=== PATIENT | male | born 1940 | race Caucasian/White ===

== ENCOUNTER 2020-04-18 09:33 | Outpatient (CLI) | payer MEDICARE, OTHER, SELFPAY ==
[2020-04-18 10:35] LABS: Blood Urea Nitrogen 22 mg/dL (8-23)
--- NOTE | 2020-04-18 10:35 | CT_ITS ---
WS: [id number] CONTRAST-ENHANCED CT OF THE LEFT FEMUR TECHNIQUE: Contrast-enhanced CT of the left femur with coronal and sagittal reformatted images. CLINICAL INFORMATION: R23.3 - Spontaneous ecchymoses COMPARISON: None. DLP: 1630.[address] scans at [facility] use at least one of these dose optimization techniques: automat ed exposure control; mA and/or kV adjustment per patient size (includes targeted exams where dose is matched to clinical indication); or iterative reconstruction. FINDINGS: Mild diffuse soft tissue edema. Intramuscular and soft tissue edema extending from the ischial tubero sity to the distal femur with intramuscular and deep soft tissue edema. Edema at the origin of the se mimembranosus and conjoined tendon at the ischial tuberosity. Edema and a small amount of hematoma ex tends into the semitendinosus and semimembranosus tendons and muscle bellies. Interfascial edema with in the mid and distal thigh. Findings are consistent with proximal hamstring tear. Hypertrophic bony spurring at the initial tuberosity. No proximal avulsion fractures. Small avulsion fracture at the distal posterior lateral femoral condyle is age indeterminant. This could be due to d istal biceps femoris, LCL, or popliteus avulsion fracture. Vascular calcification. Tiny fat-containing left inguinal hernia. Sigmoid diverticulosis. CT/CT femur LT w con [id number] IMPRESSION: 1. Diffuse intramuscular edema with a small amount of mixed signal Hematoma in volving the proximal thigh posterior compartment most compatible with proximal hamstring tear 2. Soft tissue edema and hematoma at the origin of the facial tuberosity. Intr amuscular edema and interfascial edema extends into the mid and distal thigh. 3. Bony irregularity at the ischial tuberosity appears degenerative with hyper trophic spurring. No proximal avulsion fractures. 4. Small avulsion fracture at the distal lateral femoral condyle is age indete rminant but may be chronic. This could be due to distal biceps femoris, LCL, or popliteus avulsion. 5. No other significant findings.
[2020-04-18] MEDS: iohexol 300 mg/mL 100 mL Btl IV (11:24)
[2020-04-18 13:25] LABS: Testosterone Total 729.2 ng/dL (193-740)
== END 2020-04-18 09:34 | disposition home or self-care (01) ==
LOC: RADWPI 09:43
PROVIDERS: PCP Internal Medicine; Visit Provider Internal Medicine
DX: Z01.812 Encounter for preprocedural laboratory examination (principal); E34.9 Endocrine disorder, unspecified; R23.3 Spontaneous ecchymoses; R60.0 Localized edema
CPT/HCPCS: 36415; 73701; 82565; 84403; 84520; Q9967

== ENCOUNTER → 2020-08-07 10:55 | Outpatient (BNVA) | payer MEDICARE, OTHER, SELFPAY | PROVIDERS: PCP Internal Medicine; Visit Provider Internal Medicine | DX: R53.83 Other fatigue (principal); I25.10 Atherosclerotic heart disease of native coronary artery without angina pectoris; Z85.820 Personal history of malignant melanoma of skin; I10 Essential (primary) hypertension; E78.5 Hyperlipidemia, unspecified | CPT/HCPCS: 80053; 80061; 82607; 82746; 84443; 85025; 85651 ==

== ENCOUNTER → 2020-09-04 13:02 | Outpatient (BNVA) | payer MEDICARE, OTHER, SELFPAY | PROVIDERS: PCP Internal Medicine; Visit Provider Dermatology | DX: B36.0 Pityriasis versicolor (principal); L82.1 Other seborrheic keratosis; L81.4 Other melanin hyperpigmentation; Z85.820 Personal history of malignant melanoma of skin; Z87.891 Personal history of nicotine dependence | CPT/HCPCS: 87220 ==

== ENCOUNTER 2020-09-05 07:07 | Outpatient (CLI) | payer MEDICARE, OTHER, SELFPAY ==
--- NOTE | 2020-09-05 07:15 | USCV_ITS ---
Rafa Rodriguez Age: 80 Gender: M : 1940 Exam Date: 09/05/2020 07:41 Ordering Phys: Stuart Horton M.D ([email or web address]) Technologist: Exam [place] [facility] [place] Indication: SOB BP: 125 / 74 HR: 78 Rhythm: Sinus Technical Quality: Adequate MEASUREMENTS (Male / Female) Normal Values 2D ECHO LV Diastolic Diameter PLAX 3.9 cm 4.2 - 5.9 / 3.9 - 5.3 cm LV Systolic Diameter PLAX 2.3 cm IVS Diastolic Thickness 1.1 cm 0.6 - 1.0 / 0.6 - 0.9 cm IVS Systolic Thickness 1.5 cm LVPW Diastolic Thickness 1.0 cm 0.6 - 1.0 / 0.6 - 0.9 cm LVPW Systolic Thickness 1.3 cm LVOT Diameter 2.1 cm LV Ejection Fraction 2D Teich 73.8 % LV Ejection Fraction MOD 2C 60.6 % LV Ejection Fraction 2C AL 59.0 % LA Diameter 3.1 cm LA Width 3.5 cm LA Height 4.3 cm RA Width 3.4 cm RA Height 4.7 cm Aorta at Sinotubular Diameter 2.8 cm M-MODE LV Diastolic Diameter MM 5.2 cm 4.2 - 5.9 / 3.9 - 5.3 cm LV Systolic Diameter MM 3.4 cm LV Ejection Fraction MM Teich 62.9 % IVS Diastolic Thickness MM 0.9 cm 0.6 - 1.0 / 0.6 - 0.9 cm IVS Systolic Thickness MM 1.3 cm LVPW Diastolic Thickness MM 1.0 cm 0.6 - 1.0 / 0.6 - 0.9 cm LVPW Systolic Thickness MM 1.5 cm RV Diastolic Diameter MM 2.1 cm Aortic Annulus Diameter 3.3 cm LA Ao Ratio MM 1.1 MV E Point Septal Separation 0.7 cm DOPPLER AV Peak Velocity 120.0 cm/s LVOT Peak Velocity 110.3 cm/s AV Area Cont Eq vti 3.2 cm squared AV Area Cont Eq pk 3.1 cm squared MV Area PHT 4.9 cm squared Mitral E to A Ratio 0.8 MV E' Velocity 33.0 cm/s Mitral E to MV E' Ratio 6.3 Mitral E to LV E' Lateral Ratio 5.9 Mitral E to LV E' Septal Ratio 6.8 TR Peak Velocity 144.8 cm/s TR Peak Gradient 8.4 mmHg TV Peak E Velocity 84.0 cm/s Right Atrial Pressure 3.0 mmHg Pulmonary Artery Systolic Pressu 11.4 mmHg FINDINGS Left Ventricle Normal left ventricular size. LV systolic function is normal with EF of 55-60%. No regional wall motion abnormalities. Grade 1 diastolic dysfunction Right Ventricle The right ventricle is normal in size and function. Right Atrium The right atrium is normal in size. Left Atrium The left atrium is normal in size. Mitral Valve Structurally normal mitral valve without significant stenosis or prolapse. There is no mitral regurgitation. Aortic Valve Structurally normal aortic valve without significant sclerosis or stenosis. There is no aortic regurgitation. Tricuspid Valve Structurally normal tricuspid valve without significant stenosis or regurgitation. Insufficient TR jet to calculate RVSP Pulmonic Valve Structurally normal pulmonic valve without significant stenosis. There is no pulmonic regurgitation. Pericardium Normal pericardium without effusion. Aorta Normal ascending aorta dimension. CONCLUSIONS LV systolic function is normal with EF of 55-60% Grade 1 diastolic dysfunction No signficant valvular heart disease Compared to prior echocardiogram from 11/02/2017, no significant changes are noted Stuart Horton MD (Electronically Signed) Final Date: 08 Sep 2020 16:32 S
[2020-09-05 07:40] VITALS: BMI 25.8
--- NOTE | 2020-09-05 08:30 | ECG_ITS ---
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 Interpretive Statements NAME OF STUDY: LEXISCAN SESTAMIBI STRESS TEST INDICATION: [Shortness of Breath; Palpitations; Fatigue] Procedure: At the baseline, the blood pressure was 156/79mmHg with a heart rate of 71 bpm. The electrocardiogram showed normal sinus rhythm, normal axis with normal ST and T's. The Lexiscan was infused over a period of 20 seconds. A total of 0.4 mg of Lexiscan was infused. The stress phase was continued for a total of 5 minutes. Heart rate was at the end of stress phase was 89 bpm and a blood pressure of 146/82 mmHg. The EKG at the peak infusion revealed since normal sinus rhythm with no significant ST-T wave changes. Sestamibi was injected 20 seconds after the Lexiscan infusion. Blood pressure at the end of recovery phase was 128/70 mmHg with a heart rate of 82 bpm. Conclusion: 1. Normal EKG response to Lexiscan infusion 2. No Lexiscan induced chest pain or cardiac arrhythmia. 3. Normal blood pressure and heart rate response. 4. Sestamibi/sestamibi perfusion scan pending; see separate report. Electronically Signed On 09-18-2020 17:04:49 CDT by Stuart Horton M.D. [id number]
--- NOTE | 2020-09-05 08:31 | NMCV_ITS ---
NM roxanne perf SPECT r/s* [id number] Rafa Rodriguez Age: 80 Gender: M : 1940 Exam Date: 09/05/2020 09:16 Ordering Phys: Stuart Horton M.D ([email or web address]) Technologist: SARAH Molina Exam Location: [facility] Indications: SHORTNESS OF BREATH STRESS TEST Please see separate stress test report in [facility] for full findings IMAGE PROTOCOL Rest/Stress 1 Lexiscan Day Radiopharmaceutical Dose (mCi) Administration Site Administered by Rest: Tc-99m 10.9 IV SARAH Hinkle Sestamibi Stress:Tc-99m 32.5 IV SARAH Molina Sestamiwilliam Rest: 05-Sep-2020 60 Discovery 630 Stress: 05-Sep-2020 30 Discovery 630 0.4mg Lexiscan. Images obtained in supine and prone position. SPECT RESULTS Technical Quality: Excellent Raw Data Analysis: Normal Image Corrections: No attenuation or motion correction applied Summed Stress Score: 0 Summed Rest Score: 0 Summed Difference Score: 0 PERFUSION FINDINGS Homogenous radiotracer uptake throughout the myocardium. No evidence of ischemia noted FUNCTIONAL RESULTS (calculated via Gated SPECT) Stress Image LV EF (%): 61 Stress EDV (mL):93 TID: 0.98 Stress ESV (mL):36 FUNCTIONAL FINDINGS: There is normal left ventricular systolic function. IMPRESSIONS 1. Normal myocardial perfusion imaging with no evidence of ischemia 2. LV systolic function is normal Stuart Horton MD (Electronically Signed) Final Date: 06 Sep 2020 10:47 S
--- NOTE | 2020-09-05 10:24 | SUR.PREOP ---
Patient reports no pain or discomfort prior to the start of the procedure.
[2020-09-05] MEDS: regadenoson 0.4 Mg/5 ml Syringe IVP (10:25)
[2020-09-05 10:59] VITALS: BP 155/68; PULSE 82
== END 2020-09-05 07:08 | disposition home or self-care (01) ==
LOC: CDL 07:15
PROVIDERS: PCP Internal Medicine; Visit Provider Internal Medicine
DX: R53.83 Other fatigue (principal); R06.02 Shortness of breath; R00.2 Palpitations; I51.81 Takotsubo syndrome
CPT/HCPCS: 78452; 93017; 93306; A9500; J2785

== ENCOUNTER 2020-09-19 14:26 | Outpatient (CLI) | payer MEDICARE, OTHER, SELFPAY ==
--- NOTE | 2020-09-19 18:45 | ONC CON_ITS ---
Dr. Jiménez New Patient Note Patient: Rafa Rodriguez Unit #: [id number]: 1940 Dicatated By: Gary Jiménez M.D.Date of Visit: Sep 19, 2020 Onc MED New Patient/Consult Referring Physician: Jenn Knight Chief Complaint: Melanoma. History of Present Illness: This is an 80-year-old man with history of malignant melanoma involving the upper back, stage IB (pT2a, pN0, M0). He had initially presented with a 6-month history of an enlarging mole on the upper back. Punch biopsy of the lesion on 08/27/2014 showed David level IV malignant melanoma with Breslow depth 1.45 mm. There was no evidence for vascular or perineural invasion and there was no associated ulceration. He then underwent wide excision of the melanoma with right and left axillary sentinel lymph node biopsy and with additional right axillary lymph node sampling. Pathology on the wide excision showed organizing dermal scar with no residual malignancy. Left axillary sentinel lymph node biopsy showed no involvement in one lymph node. The right axillary sentinel lymph node biopsy showed no involvement in 1 lymph node. The right axillary lymph node sampling showed no involvement in an additional 5 nonsentinel axillary lymph nodes. Pathologic staging was pT2a, pN0. He had medical oncology consultation with Dr. Sin Aguirre in October 2014. Expectant management was recommended, as there was no indication for adjuvant therapy. He then continued his further oncology care with Dr. Regan Ortega in [place]. His surveillance PET/CT on 05/04/2016 showed no evidence of recurrent or residual malignancy. During his subsequent follow-up there was no evidence of recurrence of the melanoma. He is seen now at the request of Dr. Jenn Knight, the main concern being the fact that he has had some vague discomfort in his upper back, mainly when he is lying flat. He says he just does not feel right in that area. He says that he also had fairly abrupt onset of pretty severe fatigue and he had a weight loss in the range of 12 pounds over a fairly short period of time. Since then he has had some improvement in his fatigue, though he still reports having some tiredness. His activity is still been normal. ECOG score is 0. His appetite is stayed the same, and at this point he is regaining his weight. He does not have fever or night sweats. He has not had sore throat or difficulty swallowing. He has no shortness of breath, cough, or chest pain. His cardiac evaluation last month included a negative stress test, and there were no significant abnormalities noted on echocardiogram. He has no GI/ complaints other than occasional constipation. He has no other joint or bone pain. He does not complain of headache or dizziness, and he has no focal neurologic symptoms. Past Medical History: His medical history consists of androgen deficiency, coronary artery disease, hyperlipidemia, and hypertension. He has a history of melanoma and a history of basal cell skin cancer. Past Surgical History: He underwent punch biopsy of upper back skin lesion in August 2014 and wide excision of upper back melanoma with bilateral axillary sentinel lymph node biopsy and with additional right axillary lymph node sampling in September 2014. His other surgical/procedural history includes bilateral cataract excisions, excision of basal cell skin cancer, right inguinal hernia repair, and coronary angioplasty/stent placement in 2011. Medications: Alph-E (400 Units) Capsule Oral daily, Ascorbic Acid (500 mg) Tablet Oral daily, Aspirin (325 mg) Tablet Oral daily, Cholecalciferol Tablet Oral daily, Clopidogrel Bisulfate (75 mg) Tablet Oral daily, Daily Multiple Vitamins/Iron Tablet Oral daily, Depo-Testosterone Intramuscular every other week, HYDROcodone-Acetaminophen (5-325 mg) Tablet Oral t.i.d. PRN, Metoprolol Succinate ER (25 mg) Tablet SR 24 HR Oral daily, Nitroglycerin Tablet, sublingual Sublingual PRN, [place] 3-6-9 Fatty Acids Capsule Oral daily, Rosuvastatin Calcium (10 mg) Tablet Oral daily Allergies: No Known Allergies. Social History: Mr. Rodriguez is . He is retired. He had smoked as a teenager, and he quit at least 60 years ago. He drinks a scotch every night and he also occasionally drinks a few beers. Family History: Father of heart attack. Mother with heart disease or possibly blood clot. A maternal uncle had throat cancer. Review Of Symptoms: Constitutional - He has some tiredness, but he still has normal activity. He recently had a fairly abrupt weight loss, which was in the range of 12 pounds. He has regained much of that. He does not have fever or night sweats. ECOG score is 0, Eyes - No change in vision, ENMT - He has hearing loss and tinnitus. No sinus congestion/drainage. No mouth sores. No sore throat or difficulty swallowing, Hematologic/Lymphatic - He has easy bruising and he also bleeds easily from cuts, Respiratory - No shortness of breath. No cough. No pleuritic pain or hemoptysis, Cardiovascular - No angina pain. No palpitations, Gastrointestinal - No nausea or vomiting. No heartburn or acid reflux. He occasionally has constipation. No blood in the stool or black stools, Genitourinary (M) - No dysuria or hematuria. No urinary frequency. No urgency or incontinence, Musculoskeletal - He recently has had some mild discomfort in the upper back, mainly when he is lying flat. He has some joint stiffness, but no other joint or bone pain, Integumentary - He also has been treated for tinea versicolor, Neurologic - No headache or dizziness. No numbness or tingling. No other focal neurologic symptoms, Psychiatric - No anxiety or depression. No insomnia. Vital Signs: Performed on Sep 19, 2020 15:06: 3, 0, 25.52, 1.94 sq.m, 69 in, 95 % (LOW), 89 /min, 18 /min, 159/54 mm(hg) (HIGH), 98.3 F (LOW), and 172.8 lbs (HIGH). Physical Examination: Constitutional - He appears to be in good general health, Eyes - Sclerae nonicteric. Conjunctivae clear, ENMT - No lesions noted in the oral cavity, Neck - No mass or thyromegaly, Hematologic/Lymphatic - No cervical, clavicular, or axillary adenopathy, Respiratory - Lungs are clear with good air movement bilaterally, Cardiovascular - Heart rhythm is regular. There is no murmur, gallop, or rub noted. There is no carotid bruit noted, Abdomen - Soft and non-tender. Liver and spleen are not enlarged. There is no abdominal mass or ascites noted and there is no inguinal adenopathy, Back/Spine - The area of discomfort in his back localizes to the mid thoracic spine below the scar of his melanoma excision. There is no bony tenderness in that area or elsewhere in the spine, Extremities - No edema. Pedal pulses are palpable bilaterally, Integumentary - There is a significant area of scarring in the upper mid back. There is no evidence for local recurrence of melanoma, Neurologic - No focal neurologic deficits noted. Lab/Imaging: His laboratory studies from 08/07/2020 included CBC showing hemoglobin 17.9 g with hematocrit 52.4%. The red cell indices were slightly macrocytic. The white blood cell count was 10,800 and the platelet count was 234,000. Comprehensive metabolic profile showed elevated BUN at 29 mg/dL with creatinine 1.0 mg/dL. Bilirubin and liver enzymes were normal. B12 and folate levels were normal. TSH was normal at 0.48 ???IU/mL. Problem List: 1. Malignant melanoma involving the upper back, stage IB (pT2a, pN0, M0). 2. Hypertension. 3. Hyperlipidemia. 4. Coronary artery disease. 5. Androgen deficiency. Problems Addressed with this Encounter and Plan: 1. Patient with malignant melanoma involving the upper back, stage IB (pT2a, pN0, M0). He underwent wide excision of the melanoma with bilateral axillary sentinel lymph node biopsy and with additional right axillary lymph node sampling in September 2014. He was then followed expectantly, as there was no indication for adjuvant therapy. During follow-up there has been no evidence of recurrence of the melanoma. He has recently complained of some vague discomfort in his mid to upper back, mainly when he is lying flat. That area is a little inferior to the site of his melanoma excision. There is no palpable abnormality in that area and there is no evidence for local recurrence of the melanoma. Overall, the symptoms are very nonspecific and they do not warrant further investigation unless they are persistent or worsening. 2. He was noted to have elevated hemoglobin/hematocrit levels on his laboratory studies with Dr. Archer in July. 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 He is scheduled to have his blood count repeated within the next month or so. I also will request an LDH level with those studies. He will have further evaluation if the polycythemia is persistent. Signed By: Gary Jiménez M.D. <<Signature on File>>
== END 2020-09-19 14:27 | disposition home or self-care (01) ==
LOC: ONCMED 14:29
PROVIDERS: PCP Internal Medicine; Visit Provider Internal Medicine Medical Oncology
DX: C49.6 Malignant neoplasm of connective and soft tissue of trunk, unspecified (principal); D75.1 Secondary polycythemia; I10 Essential (primary) hypertension; E78.5 Hyperlipidemia, unspecified; I25.10 Atherosclerotic heart disease of native coronary artery without angina pectoris; Z79.899 Other long term (current) drug therapy
CPT/HCPCS: 99204

== ENCOUNTER 2021-07-29 15:43 | Outpatient (CLI) | payer MEDICARE, OTHER, SELFPAY ==
--- NOTE | 2021-07-29 16:00 | MR_ITS ---
WS: [id number] MRI LUMBAR SPINE NONCONTRAST HISTORY: Back pain COMPARISON: None available. TECHNIQUE: Sagittal and axial multisequence imaging is submitted. Advanced degenerative disc disease and osteophytosis in the cervical spine. Mild encroachment upon th e ventral cervical cord from C4 through C6. LEFT curvature lumbar spine. Retrolisthesis L2 by 2.3 mm, retrolisthesis L3 by 5.6 mm, retrolisthesis of L4 by 3.6 mm, anterolisthesis L5 by 4.7 mm. Prashant moderate desiccated and narrowed throughout, most significant at L3-4 and L4-5. No acute fra cture. Conus terminates normally at L1-2 disc level. Facet joint arthritis and ligamentum flavum hypertrophy noted on the sagittal lumbar spine at T10-11 and T11-12 with mild encroachment towards the thecal sac. L1-L2: Mild facet arthritis. No stenosis. L2-L3: Mild annular disc bulge. Diffuse osteophytic ridging. There may be small bilateral disc protru sions encroaching upon the lateral recesses and foramina. Mild central, subarticular recess and berhane inal stenosis. There is slightly greater contact and deformity of the traversing LEFT L3 nerve root. L3-L4: Retrolisthesis of L3. Severe facet joint arthritis and ligamentum flavum hypertrophy. Focal ce ntral disc protrusion. Combination of factors are causing severe central, bilateral subarticular rece ss and moderate to severe foraminal stenosis. There is near complete effacement of CSF surrounding th e cord. Significant encroachment upon the traversing nerve roots. L4-L5: Diffuse annular disc bulging and osteophytic ridging. Ligamentum flavum and facet arthritis. T here is an osteophyte with slight contact on the RIGHT lateral thecal sac. Moderate bilateral facet j oint arthritis. Moderate bilateral foraminal stenosis, RIGHT greater than LEFT with mild central and subarticular recess stenosis. The disc does abut the traversing L5 nerve roots. L5-S1: Diffuse annular disc bulging with marked ligamentum flavum and facet arthritis. Fluid in the f acet joints. Ligamentum flavum hypertrophy and disc contact the S1 nerve roots bilaterally. Moderate to severe central and bilateral foraminal stenosis and subarticular recess stenosis. There is a small amount of increased T2 signal consistent with edema in the paravertebral soft tissue s and muscles throughout the lumbar spine on the LEFT beginning at L2-L4 and more focally on the RIGH T at L3-4. LEFT renal cyst measures 3.0 x 3.1 cm. MR/MR lumbar spine wo con* [id number] IMPRESSION: 1. Multilevel advanced degenerative disc disease and facet arthritis throughou t the lumbar spine. 2. Severe central, bilateral subarticular recess with moderate to severe berhane inal stenosis at L3-4 due to disc bulging/protrusions and facet and ligamentum flavum hypertrophy. 3. Moderate bilateral foraminal stenosis at L4-5 RIGHT greater than LEFT. Mild central and subarticular recess stenosis at L4-5 with disc contacting the shahbaz ersing L5 nerve roots. 4. Moderate to severe central and bilateral foraminal and subarticular recess stenosis at L5-S1. 5. Mild central, subarticular recess and foraminal stenosis at L2-3. Slightly greater contact on the LEFT L3 nerve root.
== END 2021-07-29 15:44 | disposition home or self-care (01) ==
LOC: RAD 15:48
PROVIDERS: PCP Internal Medicine; Visit Provider Internal Medicine
DX: M54.50 Low back pain, unspecified (principal); M51.36 Other intervertebral disc degeneration, lumbar region; M48.061 Spinal stenosis, lumbar region without neurogenic claudication
CPT/HCPCS: 72148

== ENCOUNTER → 2021-08-05 12:59 | Outpatient (BNVA) | payer MEDICARE, OTHER, SELFPAY | PROVIDERS: PCP Internal Medicine; Visit Provider Physician Assistant | DX: M51.37 Other intervertebral disc degeneration, lumbosacral region (principal); M43.17 Spondylolisthesis, lumbosacral region; M47.816 Spondylosis without myelopathy or radiculopathy, lumbar region; N28.1 Cyst of kidney, acquired | CPT/HCPCS: 72110; 99204; 99999 ==

== ENCOUNTER → 2021-09-26 09:19 | Outpatient (BNVA) | payer MEDICARE, OTHER, SELFPAY | PROVIDERS: PCP Internal Medicine; Visit Provider Urology | DX: N28.1 Cyst of kidney, acquired (principal) | CPT/HCPCS: 81003; 99203 ==

== ENCOUNTER → 2021-12-19 12:43 | Outpatient (BNVA) | payer MEDICARE, OTHER, SELFPAY | PROVIDERS: PCP Internal Medicine; Visit Provider Podiatrist Foot & Ankle Surgery | DX: M72.2 Plantar fascial fibromatosis (principal); M79.672 Pain in left foot; M24.572 Contracture, left ankle | CPT/HCPCS: 20550; 73630; 99203 ==

== ENCOUNTER → 2022-01-26 09:51 | Outpatient (BNVA) | payer MEDICARE, OTHER, SELFPAY | PROVIDERS: PCP Internal Medicine; Visit Provider Podiatrist Foot & Ankle Surgery | DX: M72.2 Plantar fascial fibromatosis (principal) | CPT/HCPCS: 99213 ==

== ENCOUNTER → 2022-07-23 09:15 | Outpatient (BNVA) | payer MEDICARE, OTHER, SELFPAY | PROVIDERS: PCP Internal Medicine; Visit Provider Nurse Practitioner Family | DX: I25.10 Atherosclerotic heart disease of native coronary artery without angina pectoris (principal); I10 Essential (primary) hypertension; Z87.891 Personal history of nicotine dependence; Z79.82 Long term (current) use of aspirin | CPT/HCPCS: 99214 ==

== ENCOUNTER 2022-09-17 09:41 | Outpatient (CLI) | payer MEDICARE, OTHER, SELFPAY ==
--- NOTE | 2022-09-17 10:00 | US_ITS ---
WS: [id number] ULTRASOUND RENAL TECHNIQUE: Ultrasound examination of both kidneys. CLINICAL INFORMATION: RENAL CYST COMPARISON: None. FINDINGS: RIGHT: Right kidney is normal in size and appearance. Echogenicity: Normal. Cortical thickness: 1.1 cm; Normal. Hydronephrosis: None. Perinephric fluid: None. Right kidney measures: 10.3 cm x 5.5 cm x 4.0 cm. LEFT: LEFT superolateral simple renal cyst measuring 2.4 x 3.6 x 3.2 cm Left kidney is normal in size and appearance. Echogenicity: Normal. Cortical thickness: 1.0 cm; Normal. Hydronephrosis: None. Perinephric fluid: None. Left kidney measures: 10.9 cm x 5.9 cm x 4.1 cm. Normal visualized aorta. Decompressed bladder. US/US renal BI* [id number] IMPRESSION: 1. No hydronephrosis in either kidney. 2. LEFT superolateral simple renal cyst measuring 2.4 x 3.6 x 3.2 cm 3. Bladder is decompressed.
== END 2022-09-17 09:42 | disposition home or self-care (01) ==
PROVIDERS: PCP Internal Medicine; Visit Provider Urology
DX: N28.1 Cyst of kidney, acquired (principal); Z87.891 Personal history of nicotine dependence
CPT/HCPCS: 76770; 81003; 99213

== ENCOUNTER → 2023-01-26 14:33 | Outpatient (BNVA) | payer MEDICARE, OTHER, SELFPAY | PROVIDERS: PCP Internal Medicine; Visit Provider Nurse Practitioner Family | DX: L81.4 Other melanin hyperpigmentation (principal); D22.5 Melanocytic nevi of trunk; L85.3 Xerosis cutis; L57.8 Other skin changes due to chronic exposure to nonionizing radiation; Z85.820 Personal history of malignant melanoma of skin | CPT/HCPCS: 17000; 99213 ==

== ENCOUNTER → 2023-01-28 14:32 | Outpatient (BNVA) | payer MEDICARE, OTHER, SELFPAY | PROVIDERS: PCP Internal Medicine; Visit Provider Internal Medicine | DX: I25.10 Atherosclerotic heart disease of native coronary artery without angina pectoris (principal); I10 Essential (primary) hypertension; E78.5 Hyperlipidemia, unspecified; R06.00 Dyspnea, unspecified; R53.83 Other fatigue; Z87.891 Personal history of nicotine dependence | CPT/HCPCS: 99214 ==

== ENCOUNTER 2023-02-17 08:51 | Outpatient (CLI) | payer MEDICARE, OTHER, SELFPAY ==
--- NOTE | 2023-02-17 09:30 | USCV_ITS ---
Jennifer Rafa Age: 82 Gender: M : 1940 Exam Date: 02/17/2023 09:05 Ordering Phys: Stuart Horton M.D ([email or web address]) Technologist: [place] [facility] [place]: sob BP: 150 / 62 HR: 64 Rhythm: Sinus Technical Quality: Adequate MEASUREMENTS (Male / Female) Normal Values 2D ECHO LV Chamber Size 4.3 cm RV Chamber Size 4.7 cm LVOT Diameter 2.3 cm LV Ejection Fraction MOD 2C 53.9 % LV Ejection Fraction 2C AL 55.1 % LA Diameter 3.5 cm LA Width 3.7 cm LA Height 4.8 cm RA Width 3.9 cm RA Height 4.4 cm Aorta at Sinotubular Diameter 2.8 cm IVC Diameter 1.7 cm M-MODE Aortic Annulus Diameter 3.2 cm LA Ao Ratio MM 1.2 MV E Point Septal Separation 0.7 cm DOPPLER AV Peak Velocity 121.0 cm/s LVOT Peak Velocity 91.0 cm/s AV Area Cont Eq vti 3.0 cm squared AV Area Cont Eq pk 3.0 cm squared MV Peak Velocity 92.0 cm/s MV E' Velocity 8.0 cm/s TR Peak Velocity 109.7 cm/s TR Peak Gradient 4.8 mmHg TV Peak E Velocity 66.0 cm/s Right Atrial Pressure 3.0 mmHg Pulmonary Artery Systolic Pressu 7.8 mmHg PV Peak Velocity 92.0 cm/s FINDINGS Left Ventricle Left ventricle is normal size. LV systolic function is normal with EF 55 to 60%. No regional wall motion normalities are seen. Grade 1 diastolic dysfunction Right Ventricle Normal in size and function Right Atrium normal in size Left Atrium normal in size Mitral Valve Structurally normal mitral valve. Trace mitral regurgitation. Aortic Valve Aortic valve is thickened. No significant stenosis or regurgitation. Tricuspid Valve Mild tricuspid regurgitation. Insufficient TR jet to calculate RVSP. Pulmonic Valve Not well-visualized Pericardium Normal Aorta Normal in size IVC Appears to be normal CONCLUSIONS LV systolic function is normal with EF of 55 to 60%. Grade 1 diastolic dysfunction. Trace mitral regurgitation. Trace tricuspid regurgitation Compared to prior echocardiogram from 2020, no significant changes are seen Stuart Horton MD (Electronically Signed) Final Date: 17 February 2023 10:08 S
== END 2023-02-17 08:52 | disposition home or self-care (01) ==
LOC: RAD 08:51
PROVIDERS: PCP Internal Medicine; Visit Provider Internal Medicine
DX: R06.02 Shortness of breath (principal); R07.9 Chest pain, unspecified
CPT/HCPCS: 93306

== ENCOUNTER 2023-02-17 10:01 | Outpatient (CLI) | payer MEDICARE, OTHER, SELFPAY ==
--- NOTE | 2023-02-17 | ECG_ITS ---
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 Interpretive Statements NAME OF STUDY: LEXISCAN SESTAMIBI STRESS TEST INDICATION: [Chest Pain; Shortness of Breath, ] Procedure: At the baseline, the blood pressure was 142/74mmHg with a heart rate of 59 bpm. The electrocardiogram showed normal sinus rhythm, normal axis with normal ST and T's. The Lexiscan was infused over a period of 20 seconds. A total of 0.4 mg of Lexiscan was infused. The stress phase was continued for a total of 5 minutes. Heart rate was at the end of stress phase was 77 bpm and a blood pressure of 154/73 mmHg. The EKG at the peak infusion revealed normal sinus rhythm with no significant ST-T wave changes. Sestamibi was injected 20 seconds after the Lexiscan infusion. Blood pressure at the end of recovery phase was 148/73 mmHg with a heart rate of 72bpm. Conclusion: 1. Normal EKG response to Lexiscan infusion 2. No Lexiscan induced chest pain or cardiac arrhythmia. 3. Normal blood pressure and heart rate response. 4. Sestamibi/sestamibi perfusion scan pending; see separate report. Electronically Signed On 02-18-2023 11:16:12 TRAFFIC INVESTIGATOR by Stuart Horton M.D. [id number]
[2023-02-17 10:05] VITALS: BMI 25.7
--- NOTE | 2023-02-17 10:09 | NMCV_ITS ---
NM roxanne perf SPECT r/s* [id number] Rafa Rodriguez Age: 82 Gender: M : 1940 Exam Date: 02/17/2023 10:09 Ordering Phys: Stuart Horton M.D ([email or web address]) Technologist: SARAH Molina Exam Location: [facility] Indications: CHEST PAIN, SHORTNESS OF BREATH STRESS TEST Please see separate stress test report in [facility] for full findings IMAGE PROTOCOL Rest/Stress 1 Lexiscan Day Radiopharmaceutical Dose (mCi) Administration Site Administered by Rest: Tc-99m 10.4 IV SARAH Hinkle Sestamibi Stress:Tc-99m 32.5 IV SARAH Hinkle Sestamibi Rest: 17-Feb-2023 60 Discovery 630 Stress: 17-Feb-2023 30 Discovery 630 0.4mg Lexiscan. Images obtained in supine and prone position. SPECT RESULTS Technical Quality: Excellent Raw Data Analysis: Normal Image Corrections: No attenuation or motion correction applied Summed Stress Score: 9 Summed Rest Score: 7 Summed Difference Score: 3 PERFUSION FINDINGS There is a medium to large in size reversible perfusion defect noted in apical and apical anterior wall. This is consistent with medium to large sized area of ischemia seen in LAD territory. FUNCTIONAL RESULTS (calculated via Gated SPECT) Stress Image LV EF (%): 76 Stress EDV (mL):71 TID: 0.98 Stress ESV (mL):17 FUNCTIONAL FINDINGS: There is normal left ventricular systolic function. IMPRESSIONS 1. Abnormal myocardial perfusion imaging with medium to large sized area of ischemia seen in LAD territory. 2. LV systolic function is normal. Stuart Horton MD (Electronically Signed) Final Date: 18 February 2023 09:46 S
[2023-02-17] MEDS: regadenoson 0.4 Mg/5 ml Syringe IVP (11:17)
[2023-02-17 11:42] VITALS: BP 148/73; PULSE 75
== END 2023-02-17 10:02 | disposition home or self-care (01) ==
LOC: CARD 10:02 → CDL 10:05
PROVIDERS: PCP Internal Medicine; Visit Provider Internal Medicine
DX: R07.9 Chest pain, unspecified (principal); R06.02 Shortness of breath
CPT/HCPCS: 36415; 78452; 93017; 93306; 96374; A9500; J2785

== ENCOUNTER 2023-03-03 08:45 | Outpatient (CLI) | payer MEDICARE, OTHER, SELFPAY ==
[2023-03-03] VITALS (51 sets, daily range): BP systolic 103–159; BP diastolic 59–88; PULSE 61–97; RESP 0–33; TEMP 36.7–36.9; O2SAT 92–99; BMI 27.1
--- NOTE | 2023-03-03 09:00 | XACV_ITS ---
Exam Room: 2 Ht: 170 cm Wt: 78 kg BSA: 1.94 m2 Gender: Male : 1940 Any Known Allergies: No known allergies Exam Priority: Routine Procedure(s): Procedure Description: Diagnostic procedure Procedure Description: PCI procedure Procedure Description: Drug Eluting Coronary Stent Procedure Description: PTCA Procedure Description: Miscellaneous Procedure Description: ACT Procedure Description: Coronary Angiography Diagnostic Cath Status: Urgent PCI Status: Elective Conclusions 1. Diagnostic coronary angiogram. 2. Left main: Normal vessel. 3. Left anterior descending artery: Proximal 80% stenosis, mid vessel severe ISR 99% stenosis, distal vessel with 50-60% diffuse disease. 4. Left circumflex artery: Previously placed stent in the mid vessel patent. There is 70% stenosis in the proximal segment. 5. Right coronary artery: Mild diffuse disease in the proximal and mid segment. 30% diffuse disease in the distal vessel. 6. Conclusion: Severe in-stent stenosis in mid LAD, 80% stenosis in the proximal LAD and 70% stenosis in the proximal LCx. 7. Recommendation: Angioplasty of mid-distal and proximal LAD. Will consider staged PCI of proximal circumflex. 8. Angioplasty of LAD. 9. A proximal and mid distal ISR severe stenosis lesion were crossed with the with a BMW wire. Both lesions were predilated with 2.0 and 2.5 compliant balloons. Multiple inflations were made up to 12-14 JOSE E. Subsequently a drug-eluting stent resolute 2.75 x 18 was deployed in the mid distal segment to cover the ISR. The stent was postdilated with 3.0 NC balloon at 14 JOSE E. A second drug-eluting stent resolute 3.0x26 was deployed in the proximal mid segment at 14 JOSE E. The stent was postdilated with 3.25 NC balloon at 16 JOSE E. Post stent excellent angiographic result, JOSE-3 flow. No complication related to the procedure. Interventional RX Recommendation: PCI w/o planned CABG Diagnostic RX Recommendation: PCI w/o planned CABG Anticoagulation: Heparin Pressures Phase:Rest AO : 122 / 71 ( 93 ) @ 10:35:00 AM 105 / 72 ( 89 ) @ 10:36:00 AM 127 / 94 ( 111 ) @ 10:40:00 AM 127 / 80 ( 103 ) @ 10:40:00 AM 123 / 91 ( 108 ) @ 10:45:00 AM 134 / 79 ( 104 ) @ 10:49:00 AM 144 / 82 ( 110 ) @ 11:00:00 AM 147 / 94 ( 119 ) @ 11:06:00 AM Clinical Evaluation EBL: 5mL-10mL Procedural Details Procedure Consent Obtained. Pre-Procedure Time Out. Identified patient by full name and date of as verbalized by the patient/guarantor. Does the consent match the physician's order: Yes. Accurate & Complete Informed Consent: Yes. Inpatient/Outpatient History & Physical on Chart: Yes. If H&P is completed, is and addenduem needed: No; If yes, is the addendum complete: N/A. Visualize and Verify Site with Patient/Guarantor: N/A. Relevant Radiology Images available: Yes. Pre-op teaching completed and patient verbalized understanding. The risks, benefits, and alternatives of sedation and/or procedure were discussed by physician. The patient agrees to continue. Procedure started. Current Diagnosis : Chest Pain. [facility] Clinical Fraility Score: 3: Managing Well. Store Team Leader Indications: Worsening Angina. Chest Pain Symptom Assessment: Atypical Angina. Correct patient, site and procedure confirmed by cath team. Current diagnosis: Chest Pain. PERRLA. 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 Lungs clear x 5 lobes. IV Site on Arrival: 20 gauge in the left anticubital. IV Fluids: 0.9% NaCl at KVO. 0 mL infused prior to lab manager. Pre Procedural Pulses: bilateral dorsalis pedis was 3+. Pre Procedural Pulses: bilateral posterior tibial was 3+. Pre Procedural Pulses: bilateral radial was 3+. Oxygen started at 2liters/min via nasal canula. right groin was prepped with chloroprep then draped in the usual sterile fashion. right radial was prepped with chloroprep then draped in the usual sterile fashion. Baseline sample Acquired. HR: 79 BPM. Physician arrived. Physician scrubbed in. Immediate Pre-Procedure Time Out. Correct Patient: Yes; Correct Procedure: Yes; Correct Site: Yes; Correct Patient Position: Yes; Correct Supplies: Yes; Dried Flammable Prep: Yes; Blood Products Available: N/A;. Lidocaine 1% infiltrated to the right radial. Arterial access obtained. A 6 sao tomean JL3.5 catheter in over wire. Multiple views taken of left coronary artery. Catheter removed over the exchange wire. A 6 sao tomean JR4 catheter in over wire. Multiple views taken of right coronary artery. Physician review of cine films. Catheter removed over the exchange wire. 6 sao tomean XB 3.5 guide catheter was inserted over the wire. BMW guidewire was advanced through the guide catheter to lesion in the mid LAD. Inflation number : 1 A AB MINI TREK 2.00X12 RX BALLOON was prepped and advanced across the Dist LAD , then inflated to 10 JOSE E for 0:14 seconds. Inflation number: 1 The AB MINI TREK 2.00X12 RX BALLOON was reinflated across the Mid LAD, to 12 JOSE E for 0:07 seconds. Inflation number: 2 The AB MINI TREK 2.00X12 RX BALLOON was reinflated across the Mid LAD, to 14 JOSE E for 0:07 seconds. Inflation number: 1 The AB MINI TREK 2.00X12 RX BALLOON was reinflated across the Prox LAD, to 14 JOSE E for 0:09 seconds. Inflation number: 2 The AB MINI TREK 2.00X12 RX BALLOON was reinflated across the Prox LAD, to 16 JOSE E for 0:09 seconds. Balloon out. Results checked. Inflation number : 3 A AB TREK 2.50X15 RX BALLOON was prepped and advanced across the Mid LAD , then inflated to 8 JOSE E for 0:11 seconds. Inflation number: 4 The AB TREK 2.50X15 RX BALLOON was reinflated across the Mid LAD, to 10 JOSE E for 0:09 seconds. Inflation number: 5 The AB TREK 2.50X15 RX BALLOON was reinflated across the Mid LAD, to 12 JOSE E for 0:07 seconds. Inflation number: 3 The AB TREK 2.50X15 RX BALLOON was reinflated across the Prox LAD, to 12 JOSE E for 0:16 seconds. Balloon out. 2.95x07gm Stent inserted to lesion in the mid LAD. Inflation Number : 6 A MDT R JAYCEE 2.75X18 RAMA -Lot Number# _[id number] EXP: 09/05/2025 was prepped and advanced across the Mid LAD. The stent was deployed at 12 JOSE E for 0:16 seconds. Stent balloon out over wire. Inflation Number : 4 A MDT R JAYCEE 3.0X26 RAMA -Lot Number# _[id number]_ EXP: 05/01/2023 was prepped and advanced across the Prox LAD. The stent was deployed at 17 JOSE E for 0:20 seconds. Stent balloon out over the wire. Inflation number : 2 A MDT NC EUPHORA RX [id number] BALLOON was prepped and advanced across the Dist LAD , then inflated to 8 JOSE E for 0:22 seconds. Inflation number: 7 The MDT NC EUPHORA RX [id number] BALLOON was reinflated across the Mid LAD, to 14 JOSE E for 0:10 seconds. Inflation number: 8 The MDT NC EUPHORA RX [id number] BALLOON was reinflated across the Mid LAD, to 16 JOSE E for 0:10 seconds. Inflation number: 5 The MDT NC EUPHORA RX 3.73Y57YJ BALLOON was reinflated across the Prox LAD, to 18 JOSE E for 0:14 seconds. Balloon out. Results checked. Results checked. Wire out. Guide catheter out. ACT drawn. Results 374 seconds. Therapeutic limits - pre-heparin administration 90-150 seconds and monitoring heparin during a vascular procedure >250 seconds. A TR Band was successful obtaining hemostatsis at the Right Radial artery insertion site. Post Procedure: Pulses reassessed and unchanged. PERRLA. 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 No VTE prophylaxis required. Medication's Wasted: Other = Fentanyl 50mcg. Medication's Wasted: Nitro = 49.4 mg. Medication's Wasted: Lidocaine 1% = 1 mL. Medication's Wasted: Heparin = 4000 units. Total IV fluids: 86 mL. Post-op diagnosis: CAD. Complications: None. Estimated blood loss: 5mL-10mL. Responsiveness - Normal response to verbal stimuli; alert and oriented, PERRLA. Airway - Unaffected, no intervention required; spontaneous ventilation. Circulation: W/N/L, pulses unchanged. Nausea/Vomiting: No. Vital chart was stopped. Procedure completed. Patient transferred by wheelchair to CPRU. Access Site Site: Right Radial artery Sheath Size: 6 Fr Hemostasis Method: TR Band Hemostasis Success: Successful Procedure Medications Start: 10:16 AM Stop: 10:16 AM Medication: Plavix Amount: 300 mg Route: P.O. Start: 10:26 AM Stop: 10:26 AM Medication: Versed Amount: 1 mg Route: I.V. Start: 10:26 AM Stop: 10:26 AM Medication: Fentanyl Amount: 50 mcg Route: I.V. Start: 10:32 AM Stop: 10:32 AM Medication: Nitrogylcerin Amount: 200 mcg Route: I.A. Start: 10:32 AM Stop: 10:32 AM Medication: Heparin Amount: 5000 units Route: I.V. Start: 10:48 AM Stop: 10:48 AM Medication: Heparin Amount: 5000 units Route: I.V. Start: 11:03 AM Stop: 11:03 AM Medication: Nitrogylcerin Amount: 200 mcg Route: I.C. Start: 11:06 AM Stop: 11:06 AM Medication: Versed Amount: 1 mg Route: I.V. Start: 11:23 AM Stop: 11:23 AM Medication: Nitrogylcerin Amount: 200 mcg Route: I.C. I, the attending physician, have reviewed and verified all procedure medications. Yes, all medications given per verbal order History/Risk Factors Hypertension: Yes Dyslipidemia: Yes Peripheral Arterial Disease (PAD): No Myocardial Infarction (ME): No Obesity: No Renal Disease: No Tobacco Use: Never Prior Interventions PCI: Yes CABG: No Valve Surgery: No Date of PCI: 11/12/2011 Report Signatures Finalized by Panchito Ching MD on 03/03/2023 12:35 PM
[2023-03-03 09:32] LABS: Basophils % 0.7 %; Eosinophils # 0.1 10^3/uL (0.0-0.8); Eosinophils % 1.3 %; Lymphocytes # 1.6 10^3/uL (0.8-4.8); Lymphocytes % 29.9 %; Mean Corpuscular HGB Conc 33.4 g/dL (30-55); Mean Corpuscular Hemoglobin 33.3 pg (27-33); Mean Corpuscular Volume 99.6 fl (82-101); Mean Platelet Volume 9.2 fL (7.4-10.4); Monocytes # 0.6 10^3/uL (0.2-0.9); Monocytes % 10.9 %; Neutrophils # 3.07 10^3/uL (1.8-7.7); Nucleated Red Blood Cells % 0 %; Platelet Count 187 10^3/cmm (157-399); Red Blood Count 4.72 10^6/uL (3.85-5.65); Red Cell Distribution Width 12.2 % (12.1-15.1); White Blood Count 5.39 10^3/uL (3.29-11.43)
[2023-03-03] MEDS: diphenhydrAMINE 50 mg Capsule PO (09:36)
[2023-03-03 09:59] LABS: Anion Gap 14.3 (5-19); Blood Urea Nitrogen 21 mg/dL (8-23); Calcium 10.3 mg/dL (8.5-10.5); Carbon Dioxide 28 mmol/L (22-29); Chloride 100 mmol/L (98-107); Glucose 95 mg/dL (65-115); Osmolality Calculated 289 mOsm/kg (285-295); Potassium 4.3 mmol/L (3.5-5.1); Sodium 138 mmol/L (136-145)
[2023-03-03] MEDS: nitroglycerin drip 50 MG/250 ML PREMIX IV (12:29)
--- NOTE | 2023-03-03 12:37 | PM.HP ---
Providers/Chief Complaint Admitting Physician: Panchito Ching MD Primary Care Provider: Morris Archer MD Chief Complaint: R94.39 History of Present Illness Rafa Rodriguez is a 82 year old male <del>with</del> <del>a</del> <del>known</del> <del>history</del> <del>of</del> <del>coronary</del> <del>disease</del> <del>recently</del> <del>had</del> <del>a</del> <del>nuclear</del> <del>stress</del> <del>test</del> <del>for</del> <del>symptoms</del> <del>of</del> <del>angina.</del> <del>The</del> <del>stress</del> <del>test</del> <del>was</del> <del>strongly</del> <del>positive</del> <del>for</del> <del>ischemia</del> <del>in</del> <del>the</del> <del>anterolateral</del> <del>territory.</del> <del>Patient</del> <del>underwent</del> <del>cardiac</del> <del>cath</del> <del>today.</del> <del>Angiography</del> <del>revealed</del> <del>severe</del> <del>in-stent</del> <del>restenosis</del> <del>in</del> <del>the</del> <del>mid</del> <del>LAD.</del> <del>There</del> <del>was</del> <del>also</del> <del>significant</del> <del>disease</del> <del>in</del> <del>the</del> <del>proximal</del> <del>LAD</del> <del>as</del> <del>well</del> <del>as</del> <del>in</del> <del>the</del> <del>proximal</del> <del>circumflex</del> <del>artery.</del> <del>Considering</del> <del>the</del> <del>anatomy</del> <del>will</del> <del>plan</del> <del>for</del> <del>angioplasty</del> <del>of</del> <del>mid</del> <del>distal</del> <del>LAD</del> <del>and</del> <del>proximal</del> <del>LAD</del> <del>stenosis.</del> <del>And</del> <del>plan</del> <del>for</del> <del>possible</del> <del>staged</del> <del>angioplasty</del> <del>of</del> <del>the</del> <del>circumflex</del> <del>artery</del> <del>if</del> <del>needed.</del> <del>Patient</del> <del>underwent</del> <del>successful</del> <del>angioplasty</del> <del>of</del> <del>a</del> <del>mid</del> <del>distal</del> <del>LAD</del> <del>and</del> <del>proximal</del> <del>LAD</del> <del>with</del> <del>a</del> <del>drug-eluting</del> <del>stents.</del> <del>Postprocedure</del> <del>clinically</del> <del>patient</del> <del>is</del> <del>asymptomatic.</del> <del>No</del> <del>complication</del> <del>noted</del> <del>to</del> <del>the</del> <del>procedure.</del> <del>Patient</del> <del>is</del> <del>being</del> <del>admitted</del> <del>for</del> <del>observation</del> <del>overnight.</del> Review of Systems Narrative: Detailed 10 point systemic review remarkable for ongoing symptoms of angina with mild to moderate exertion for last week or so. Associated with shortness of air. Rest of systemic review unremarkable. He is fairly active in his routine life. Medications/Allergies Home Medications Medication Instructions Recorded Confirmed Last Taken Type ascorbate calcium (vitamin C) 500 500 mg PO DAILY 06/01/19 03/03/23 03/02/23 08:00 History mg tablet aspirin 325 mg tablet 325 mg PO DAILY 06/01/19 03/03/23 03/03/23 07:00 History cholecalciferol (vitamin D3) 1 tab PO DAILY 06/01/19 03/03/23 03/02/23 08:00 History multivitamin,[id number] 1 tab PO DAILY 06/01/19 03/03/23 03/02/23 08:00 History (Complete Multivitamin tablet) omega-3 fatty acids 1,000 mg 1,000 mg PO DAILY 06/01/19 03/03/23 03/02/23 08:00 History capsule (Fish Oil Concentrate) vitamin E (dl, acetate) 180 mg 400 unit PO DAILY 06/01/19 01/28/23 Unknown History (400 unit) capsule testosterone cypionate 200 mg/mL 100 mg (0.5 mL) SUBCUT .Q 2 Weeks 02/16/22 01/28/23 Unknown Rx intramuscular oil #10 mL (Depo-Testosterone) clopidogrel 75 mg tablet 75 mg PO DAILY #90 tabs 12/04/22 03/03/23 03/03/23 07:00 Rx rosuvastatin 10 mg tablet 10 mg PO DAILY #90 tabs 12/04/22 03/03/23 03/03/23 07:00 Rx metoprolol succinate 50 mg See Rx Instructions .Route 01/29/23 03/03/23 03/03/23 07:00 Rx tablet,extended release 24 hr .COMPLEX #45 tabs Allergies Allergy/AdvReac Type Severity Reaction Status Date / Time No Known Allergies Allergy Verified 01/28/23 14:54 PFSH Acute PFSH: Medical History ASHD (arteriosclerotic heart disease) Dizziness Dyslipidemia History of malignant melanoma History of nonmelanoma skin cancer HTN (hypertension) Hx of heart valve stenosis Surgical History History of tonsillectomy S/P angioplasty with stent S/P cataract extraction S/P hernia repair S/P tonsillectomy Family History Father , AGE 68 Myocardial infarction Mother , AT AGE 62 No problems noted. 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 HENMT: OTHER: Unremarkable normal. Eye: OTHER: Normal Chest: OTHER: Chest exam is unremarkable. Resp: OTHER: Good air entry bilaterally. No added sounds. Cardio: OTHER: Normal cardiovascular exam. Normal first and second heart sound. No added sounds. GI: OTHER: Abdomen soft and nontender. BS + Extremity: OTHER: Normal.No pedal edema. Neuro: OTHER: Grossly intact. Patient moves all 4 limbs. Skin: OTHER: Warm and dry. Data 03/03/23 09:22 03/03/23 09:22 A&P Assessment and plan (1) Unstable angina: This 82-year-old patient with a known history of coronary disease with previous multiple angioplasties and successful angioplasty procedure of LAD with 2 drug-eluting stents for severe a stenosis. Postprocedure patient is clinically fine and asymptomatic. No complication related to the procedure. Patient is being admitted in ICU for observation overnight. He was loaded with dual antiplatelets and will continue his routine medication upon discharge. Attestations Medical Necessity Statement*: Post angioplasty of LAD Coding Level of Care Code Critical Care >/= 30 minutes Diagnoses Unstable angina I20.0
[2023-03-03] MEDS: omega-3 fatty acids 1,000 mg Capsule 1000 MG PO (15:19)
[2023-03-03] MEDS: metoprolol succinate ER (24 HR) 50 mg Tablet 25 MG PO (15:19)
--- NOTE | 2023-03-03 19:10 | PC.NURSE ---
Dressing to right wrist has very small amount of blood. Bruising observed. Patient denies pain to site.
--- NOTE | 2023-03-03 19:42 | PC.NURSE ---
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 He had a TR band on his right wrist. NO hematomas, or bleeding noted. Removed TR band, applied Bioclusive dressing, very slow ooze noted from site. reapplied TR band at 6ml then slowly released it after dinner, applied a gauze and bioclusive dressing.. Area has since oozed a little onto gauze but not out dressing. Sinus rhythm noted o monitor entire ICU time. Pt has denies chest pain or dizziness. He has used urinal once this shift. He has a big appetite and ate all of lunch and dinner,.
[2023-03-03] MEDS: atorvastatin 40 mg Tablet PO (20:04)
[2023-03-04] VITALS (22 sets, daily range): BP systolic 117–155; BP diastolic 63–89; PULSE 60–82; RESP 0–18; O2SAT 95–100
[2023-03-04] MEDS: aspirin 325 mg Tablet PO (08:25)
[2023-03-04] MEDS: ascorbic acid 500 mg Tablet PO (08:25)
[2023-03-04] MEDS: metoprolol succinate ER (24 HR) 50 mg Tablet 25 MG PO (08:25)
[2023-03-04] MEDS: omega-3 fatty acids 1,000 mg Capsule 1000 MG PO (08:25)
[2023-03-04] MEDS: clopidogrel 75 mg Tablet PO (08:25)
--- NOTE | 2023-03-04 09:28 | P.DS_ITS ---
Discharge Providers Date of Admission: 03/03/23 11:51 Date of Discharge: March 04, 2023 Attending Provider at Admission: Panchito Ching MD Attending Provider at Discharge: Panchito Ching MD Primary Care Provider: Morris Archer MD Diagnoses at Discharge Discharge Diagnosis (1) Unstable angina: Status: Acute Reason for Visit Reason for Visit: R94.39 Hospital Course Hospital Course This an 82-year-old male patient with previous history of coronary disease who was admitted with symptoms of worsening angina and a strongly positive nuclear stress test. He underwent successful angioplasty of LAD with 2 drug-eluting stents. Postprocedure patient is doing fine. vitals are stable. cardiovascular exam is unremarkable. He is ambulating well. He is going to be discharged home today and follow-up in the cardiology clinic in 2 to 3 weeks. Physical Exam Narrative: Vitals normal, pulse 72 bpm, blood pressure 121/76 No JVD Chest clear to auscultation bilaterally Cardiovascular exam unremarkable. Normal first and second heart sounds. No added sounds. Abdominal soft nontender. Bowel sounds audible. Extremities: Normal distal pulses palpable bilaterally. No pedal edema. Right radial arteriotomy site is unremarkable. Skin warm and dry. Neuro: Normal and intact. 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 Routine Exams 03/03/23 09:00 Completed Laboratory Results WBC 5.39 10^3/uL (3.29-11.43) 03/03/23 09:22 RBC 4.72 10^6/uL (3.85-5.65) 03/03/23 09:22 Hgb 15.70 g/dL (11.27-16.99) 03/03/23 09:22 Hct 47.0 % (37-53) 03/03/23 09:22 MCV 99.6 fl (82-101) 03/03/23 09:22 MCH 33.3 pg (27-33) H 03/03/23 09:22 MCHC 33.4 g/dL (30-55) 03/03/23 09:22 RDW 12.2 % (12.1-15.1) 03/03/23 09:22 Plt Count 187 10^3/cmm (157-399) 03/03/23 09:22 MPV 9.2 fL (7.4-10.4) 03/03/23 09: Neut % (Auto) 57.0 % 03/03/23 09: Lymph % (Auto) 29.9 % 03/03/23 09: [place] % (Auto) 10.9 % 03/03/23 09: Eos % (Auto) 1.3 % 03/03/23 09: Baso % (Auto) 0.7 % 03/03/23 09: Neut # (Auto) 3.07 10^3/uL (1.8-7.7) 03/03/23 09: Lymph # (Auto) 1.6 10^3/uL (0.8-4.8) 03/03/23 09: [place] # (Auto) 0.6 10^3/uL (0.2-0.9) 03/03/23 09: Eos # (Auto) 0.1 10^3/uL (0.0-0.8) 03/03/23 09: Baso # (Auto) 0.0 10^3/uL (0.0-0.1) 03/03/23 09: Nucleated RBC % (auto) 0 % 03/03/23 09: Nucleated RBCs # 0.0 /100WBC 03/03/23 09:22 Sodium 138 mmol/L (136-145) 03/03/23 09: Potassium 4.3 mmol/L (3.5-5.1) 03/03/23 09: Chloride 100 mmol/L (98-107) 03/03/23 09: Carbon Dioxide 28 mmol/L (22-29) 03/03/23 09:22 Anion Gap 14.3 (5-19) 03/03/23 09:22 BUN 21 mg/dL (8-23) 03/03/23 09: Creatinine 1.0 mg/dL (0.7-1.2) 03/03/23 09:22 GFR Calculation Not Reportable 03/03/23 09: Glucose 95 mg/dL (65-115) 03/03/23 09:22 Calculated Osmolality 289 mOsm/kg (285-295) 03/03/23 09: Calcium 10.3 mg/dL (8.5-10.5) 03/03/23 09:22 Vitals Last Vital Signs Temp 98.1 F 03/03/23 20:30 Pulse 63 03/04/23 05:32 Resp 5 L 03/04/23 05:00 BP 149/85 03/04/23 05:00 Pulse Ox 97 03/04/23 05:00 O2 Del Method Room Air 03/03/23 18:30 Discharge Plan Discharge Patient Disposition: Home Condition: Good Prescriptions: New atorvastatin 40 mg Tablet 40 mg PO BEDTIME Qty: 30 3RF Continued vitamin E (dl, acetate) 400 unit capsule 400 unit PO DAILY omega-3 fatty acids [Fish Oil Concentrate] 1,000 mg capsule 1,000 mg PO DAILY ascorbate calcium (vitamin C) 500 mg tablet 500 mg PO DAILY cholecalciferol (vitamin D3) 1 tab PO DAILY aspirin 325 mg tablet 325 mg PO DAILY Complete Multivitamin Tablet 1 tab PO DAILY clopidogrel 75 mg tablet 75 mg PO DAILY Qty: 90 3RF metoprolol succinate 50 mg tablet extended release 24 hr See Rx Instructions .ROUTE .COMPLEX Qty: 45 0RF Dose Instruction: Take 1/2 (one-half) tablet by mouth once daily Rx Instructions: Take 1/2 (one-half) tablet by mouth once daily Discontinued testosterone cypionate [Depo-Testosterone] 200 mg/mL oil 100 mg SUBCUT .Q 2 Weeks Qty: 10 5RF rosuvastatin 10 mg tablet 10 mg PO DAILY Qty: 90 3RF Discharge Orders: Discharge Order (Routine); Ordered 03/04/23 Ordered By: Panchito Ching Discharge Diet: Cardiac Patient Instructions: Opioid Safety Activity Restrictions/Additional Instructions: as tolerated Discharge Attestations Time Spent in Discharge Care*: less than 30 min Quality Metrics Clinical Quality Measures [ No reported AMI, CVA or VTE this stay] Coding Level of Care Code Acute Code for Chg Fwd Diagnoses Unstable angina I20.0 Time Spent (min) 30
--- OUTSIDE RECORDS SUMMARY | 2023-03-04 19:12 | XMS_ITS | Patient Health Record ---
Author Name Unknown Organization [facility] Address [address] [address] Care Team Providers Care Guest Experience Captain Name Role Phone Chemo Jeronimo MD Primary Care Provider Unavail able Jane Hinds Unavailable [phone] Eliceo Archer Unavailable [phone] ALLERGIES No Known Allergies RESULTS Component Value Reference Range Notes CBC w\ Auto Diff [id number] Reviewed date:03/25/2022 09:54:36 AM Interpretation: Performing Lab: Notes/Report: Diagnosis Description: Testicular hypofunction WBC 6.6 4.5-11.0 X10'3 RBC 4.99 4.50-5.90 X10'6 Hgb 16.6 13.5-17.5 G/DL Hct 48.5 41.0-53.0 % MCV 97.2 80.0-100.0 FL MCH 33.3 27.0-31.0 PG MCHC 34.2 31.0-37.0 G/DL Platelet 235 150-400 X10'3 RDW-SD 48.2 35.0-49.0 FL RDW-CV 13.2 12.2-15.6 % MPV 10.4 9.2-12.0 FL Neutro Auto% 62.1 42.0-75.0 % Lymph Auto% 25.2 21.0-51.0 % Early Auto% 10.7 1.7-9.3 % Eos Auto% 1.2 .0-6.0 Baso Auto% 0.5 0.0-1.0 Imm Gran% .3 .0-.4 % Neutro Abs 4.07 .80-7.70 Lymph Abs 1.65 .10-4.10 Early Abs .70 .20-1.00 Eos Abs .08 .00-.40 Baso Abs .03 .00-.10 Imm Gran Abs .02 .00-.10 NRBC# .00 .00-.20 NRBC% .00 .00-.20 /100 int act WBC's Comprehensive Metabolic Pane l [id number] Reviewed date:03/25/2022 09:54:12 AM Interpretation: Performing Lab: Notes/Report: Diagnosis Description: Testicular hypofunction Glucose Serum 67 71-110 MG/DL BUN 20 7-21 MG/DL Creat 1.14 .57-1.17 MG/DL F-nkqjog-s-benzoquinone imine (NAPQI) is a metabolite of acetaminophen, NAPQI concentrations of apparoximately 10 mg/L correlation to toxic levels of acetaminophen demonstrates a greater than or equil to 10% change in results. NAPQI concentrations greater than this may lead to falsely depressed results for patient samples. Use of this assay is not recommended for patients undergoing treatment with phenindione, due to the potential for falsely depressed results. GFR 63.9 Calculation per formed from GFR calculator provided by the [employer]. Glomerular Filtration rate(GRF) is the best overall index of kidney function. Normal GFR varies according to age,sex, body size, and declines with age. The [employer] recommends using the CKD-EPI Creatinine Equation(2009) to estimate GFR. BUN/Creat Ratio 17.5 12.0-20.0 % Total Protein 7.6 5.8-8.0 G/DL Albumin 4.8 3.2-4.8 G/DL Globulin 2.8 2.3-3.5 G/DL Alb/Glob 1.7 0.8-2.2 Calcium 10.4 8.7-10.4 MG/DL Sodium 138 136-145 MMOL/L Potassium 4.4 3.5-5.1 MMOL/L Chloride 99 98-107 MMOL/L CO2 26.7 20.0-31.0 MMOL/L Anion Gap 17 5-15 Alk Phos 70 46-116 Bili Total .5 .3-1.2 MG/DL Use of this ass ay is not recommended for patients undergoing treatment with eltrombopag due to the potential for falsely elevated results. AST/SGOT 34 15-37 UNIT/L ALT/SGPT 44 12-78 UNIT/L Osmo Serum,Calculated 287 280-300 MOSM/KG Lipid Panel Reflex DLDL 8006 1, 79286 Reviewed date:03/25/2022 09:54:53 AM Interpretation: Performing Lab: Notes/Report: Diagnosis Description: Testicular hypofunction Trig 205 Classification Guidelines:Triglycerides Adults: >20yrs Desirable <150 Borderline High 150-199 High 200-499 Very high >=500 Children: Male 0-4 yr 22-99 5-9 yr 30-101 10-14 yr 32-125 15-19 yr 37-148 Children: Female 0-4 yr 34-112 5-9 yr 32-105 10-14 yr 37-131 15-19 yr 39-132 Chol 206 <=200 MG/DL HDL 41 30-72 MG/DL Reference Ranges:HDL Male: 5-9y 38-75 10-14y 37-74 15-19y 30-63 >=20y 40-59 Female: 5-9y 36-73 10-14y 37-70 15-19y 35-74 >=20y 40-59 CH/HDL 5.0 0.0-4.9 LDL 124 0-130 MG/DL LDL result is i naccurate , if Trig is >400 mg/dl. See DLDL result. Thyroid Stimulating Hormone (TSH) 80886 Reviewed date:03/25/2022 03:03:12 PM Interpretation: Performing Lab: Notes/Report: Diagnosis Description: Testicular hypofunction TSH 2.217 .358-3.740 MlU/ML Testosterone (Free&Total) Sam richards 76397, 59329, 84004 Reviewed date:03/30/2022 11:18:25 AM Interpretation: Performing Lab: Notes/Report: Diagnosis Description: Testicular hypofunction Testosterone Level 389 300-720 INTERPRETIVE INFORMATION: Testosterone by Immunoassay Testosterone immunoassays are both imprecise and inaccurate at low testosterone concentrations, such as those found in children and cisgender females. For these individuals, testing by mass spectrometry is recommended; refer to Testosterone (Adult Females, Children, or Individuals on Testosterone-Suppressing Hormone Therapy) ([facility] test code 1226583). Free or bioavailable testosterone measurements may provide supportive information. For individuals on testosterone hormone therapy, refer to cisgender male reference intervals. No reference intervals have been established for males younger than 14 years or for cisgender females. For a complete set of all established reference intervals, refer to [facility]/Tests/Pub/ 55456. Testosterone Free 57 47-244 pg/mL INTERPRETIVE INFORMATION: Testosterone, Free Calculation Free testosterone concentration is calculated using total testosterone (measured by immunoassay) and the binding constant of testosterone and sex hormone-binding globulin (SHBG). Testosterone immunoassays are both imprecise and inaccurate at low testosterone concentrations, such as those found in children and cisgender females. For these individuals, testing by mass spectrometry is recommended; refer to Testosterone, Free (Adult Females, Children, or Individuals on Testosterone-Suppressing Hormone Therapy) ([facility] test code 4473764). For individuals on testosterone hormone therapy, refer to cisgender male reference intervals. No reference intervals have been established for males younger than 14 years or for cisgender females. For a complete set of all established reference intervals, refer to [facility]Gas/Qiro/boosk/ 66796. % Free Testosterone 1.5 1.6-2.9 % Performed By: [facility] [address] [place] [id number] Housekeeping Laundry Worker: Charli Tan MD, PhD Sex Hormone Binding Globulin 48 19-76 nmol/L REFERENCE INTERVAL: Sex Hormone Binding Globulin Access complete set of age- and/or gender-specific reference intervals for this test in the [facility] Test Directory ([facility]). Testosterone (Free&Total) [facility] 18877, 31646, 29559 (Not yet reviewed by provider) Interpretation: Performing Lab: Notes/Report: Testosterone Level 122 300-720 INTERPRETIVE INFORMATION: Testosterone by Immunoassay Testosterone immunoassays are both imprecise and inaccurate at low testosterone concentrations, such as those found in children and cisgender females. For these individuals, testing by mass spectrometry is recommended; refer to Testosterone (Adult Females, Children, or Individuals on Testosterone-Suppressing Hormone Therapy) ([facility] test code 0337365). Free or bioavailable testosterone measurements may provide supportive information. For individuals on testosterone hormone therapy, refer to cisgender male reference intervals. No reference intervals have been established for males younger than 14 years or for cisgender females. For a complete set of all established reference intervals, refer to [facility]/Tests/Pub/ 88946. Testosterone Free 15 47-244 pg/mL INTERPRETIVE INFORMATION: Testosterone, Free Calculation Free testosterone concentration is calculated using total testosterone (measured by immunoassay) and the binding constant of testosterone and sex hormone-binding globulin (SHBG). Testosterone immunoassays are both imprecise and inaccurate at low testosterone concentrations, such as those found in children and cisgender females. For these individuals, testing by mass spectrometry is recommended; refer to Testosterone, Free (Adult Females, Children, or Individuals on Testosterone-Suppressing Hormone Therapy) ([facility] test code 1584419). For individuals on testosterone hormone therapy, refer to cisgender male reference intervals. No reference intervals have been established for males younger than 14 years or for cisgender females. For a complete set of all established reference intervals, refer to ltd.[facility]/Tests/Pub/00 39879. % Free Testosterone 1.2 1.6-2.9 % Performed By: [facility] [address] [place] [address] Housekeeping Laundry Worker: Charli Tan MD, PhD CLIA Number: [id number] Sex Hormone Binding Globulin 55 19-76 nmol/L REFERENCE INTERVAL: Sex Hormone Binding Globulin Access complete set of age- and/or gender-specific reference intervals for this test in the [facility] Test Directory ([facility]). REASON FOR REFERRAL No Information MEDICATIONS Medication SIG (Take, Route, Frequency, Duration) Notes Start Date End Date Status Aspirin 325 MG 1 tablet Orally Once a day Active Vitamin E Vitamin E 11/03/2017 Active Metoprolol Tartrate 25 MG 1 tablet with food Orally once a day Active Voltaren 1 % as directed Externally TID for 30 days 10/21/2022 05/18/2023 Active Rosuvastatin calcium 10 MG Oral Tablet Rosuvastatin calcium 10 MG Oral Tablet 11/03/2017 Active Clopidogrel Bisulfate 75 MG 1 tablet Orally Once a day Active Testosterone Cypionate 200 MG/ML 0.25 ml Intramuscular bi-weekly for 30 days 09/11/2022 Active Vitamin C 500 MG 1 tablet Orally Once a day Active Multivitamin - 1 tablet Orally Once a day Active Fish Oil 1000 MG 1 capsule Orally Once a day Active Vitamin D3 25 MCG (1000 UT) 1 tablet Orally Once a day Active IMMUNIZATIONS Vaccine Route Administration Date Status Comme nts Influenza (whole), CPT 63196 Inactive Unknown 01/13/2017 Administered Influenza (whole), CPT 16647 Inactive Unknown 02/23/2018 Administered SOCIAL HISTORY Tobacco Use: Social History Observation Description Date Details (start date - stop date) Former Smoker NA - NA Sex Assigned At : Social History Observation Description Sex Assigned At Unknown Tobacco Use/Smoking Question Answer Notes Are you a former smoker How long has it been since you last smoked? > 10 years Alcohol Screen (Audit-C) Question Answer Notes Did you have a drink contain ing alcohol in the past year? Yes How many drinks did you have on a typical day when you were drinking in the past year? 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) Active confirmed Malignant melanoma of back (202834512) Problem Primary hypertension (I10) Active confirmed 34847884 VITAL SIGNS Heart Rate 71 /min 10/21/2022 Temperature 97.8 degrees Fahrenheit 10/21/2022 Respiratory Rate 20 /min 03/24/2022 Oximetry 95 % 10/21/2022 Blood pressure diastolic 60 mm Hg 10/21/2022 Weight-kg 79.11 kg 10/21/2022 Height 69 in 10/21/2022 Blood pressure systolic 130 mm Hg 10/21/2022 Weight 174.4 lbs 10/21/2022 BMI 25.75 kg/m2 10/21/2022 Encounters Encounter Location Date Provider Diagnosis [facility] [address] [place] [address] 09/08/2022 Eliceo [facility] [address] [place] [address] 09/11/2022 Eliceo [facility] [address] [place] [address] 12/15/2022 Eliceo [facility] [address] [place] [address] 02/19/2023 Eliceo [facility] [address] [place] [address] 02/24/2023 Eliceo Archer [facility] [address] [place] [address] 10/21/2022 Eliceo Archer Hand pain, left M79.642 ; Mixed hyperlipidemia E78.2 ; Hypogonadism in male E29.1 ; Primary hypertension I10 and Coronary artery disease involving [place] coronary artery of [place] heart without angina pectoris I25.10 [facility] [address] [place] [phone] 04/23/2022 Eliceo Archer Primary hypertension I10 ; Mixed hyperlipidemia E78.2 ; Hypogonadism in male E29.1 and Coronary artery disease involving [place] coronary artery of [place] heart without angina pectoris I25.10 [facility] [address] [place] [phone] 03/24/2022 Eliceo Archer Mixed hyperlipidemia E78.2 ; Hypogonadism in male E29.1 and Coronary artery disease involving [place] coronary artery of [place] heart without angina pectoris I25.10 [facility] [address] [place] [phone] 02/26/2023 Eliceo Archer Testosterone deficiency E34.9 ASSESSMENTS Encounter Date Diagnosis Assessment Notes Treatment Notes Treatment Clinical Notes 03/24/2022 Mixed hyperlipidemia (ICD-10 - E78.2) 03/24/2022 Hypogonadism in male (ICD-10 - E29.1) 04/23/2022 Primary hypertension (ICD-10 - I10) pt is stable on current medications,no changes at this time 10/21/2022 Mixed hyperlipidemia (ICD-10 - E78.2) 04/23/2022 Mixed hyperlipidemia (ICD-10 - E78.2) 10/21/2022 Hand pain, left (ICD-10 - M79.642) 02/26/2023 Testosterone deficiency (ICD-10 - E34.9) 04/23/2022 Hypogonadism in male (ICD-10 - E29.1) 10/21/2022 Hypogonadism in male (ICD-10 - E29.1) 03/24/2022 Coronary artery disease involving [place] coronary artery of [place] heart without angina pectoris (ICD-10 - I25.10) 04/23/2022 Coronary artery disease involving [place] coronary artery of [place] heart without angina pectoris (ICD-10 - I25.10) 10/21/2022 Primary hypertension (ICD-10 - I10) 10/21/2022 Coronary artery disease involving [place] coronary artery of [place] heart without angina pectoris (ICD-10 - I25.10) 03/24/2022 Other Venipuncture performed by Ayleen Pinedo. Right arm/hand. One attempt. Pt tolerated well, bleeding controlled with light dressing. Lab sent to [facility] via materials handling equipment operator. 02/26/2023 Other Venipuncture performed by Анна Gibson. Right arm/hand. One attempt. Pt tolerated well, bleeding controlled with light dressing. Lab sent to [facility] via materials handling equipment operator. PLAN OF TREATMENT Pending Test Test Name Order Date Testosterone (Free&Total) Male 92141, 84 402, 07719 02/26/2023 Future Test Test Name Order Date CBC w\ Auto Diff [id number] 10/25/2020 Comprehensive Metabolic Panel 26542 10/10 Next Appt Details Provider Name:Eliceo Archer, 04/26/2023 10:40:00 AM, [address] [place] [address], [phone], Insurance Providers Payer Name Payer Address Payer Phone Subscriber Number Group Number Insured Name Patient Relationship to Insured Coverage Start Date Coverage End Date [place] [address] [place] [phone] [id number] Rafa Rodriguez Self - patient is the insured [address] [phone] [id number] Rafa Rodriguez Self - patient is the insured MEDICAL (GENERAL) HISTORY Medical History History ICD Code Problem:Heart disease (disorder) , Statu s :: Active Problem:Hyperlipidemia (disorder) , Stat us :: Active Problem:Hypertensive disorde r, systemic arterial (disorder) , Status :: Active Problem:Increased body mass index (findi ng) , Status :: Active Problem:Malignant melanoma of back (diso rder) , Status :: Active ASHD Dizziness Dyslipidemia hypertension Hx of nonmelanoma skin cancer Hx of heart valve stenosis Surgical History Surgery Date(Month/Year) hernia repair tonsilectomy cancer in back 4 stents in heart S/P angioplasty with stent S/P cataract extraction
== END 2023-03-04 10:04 | disposition home or self-care (01) ==
LOC: CCL 08:46 → ICU 03-04 09:28
PROVIDERS: PCP Internal Medicine; Visit Provider Internal Medicine Cardiovascular Disease
DX: I25.110 Atherosclerotic heart disease of native coronary artery with unstable angina pectoris (principal); E78.5 Hyperlipidemia, unspecified; I10 Essential (primary) hypertension; Z87.891 Personal history of nicotine dependence
CPT/HCPCS: 12345; 36415; 80048; 85025; 85347; 93454; 96361; 96365; 99152; 99153; 99291; C1725; C1769; C1874; C1887; C1894; C9600; CATH; J1644; J2250; J3010; J3490; J7030; Q0163; Q9967

== ENCOUNTER → 2023-03-25 15:29 | Outpatient (BNVA) | payer MEDICARE, OTHER, SELFPAY | PROVIDERS: PCP Internal Medicine; Visit Provider Internal Medicine | DX: I25.10 Atherosclerotic heart disease of native coronary artery without angina pectoris (principal); I10 Essential (primary) hypertension; E78.5 Hyperlipidemia, unspecified; R06.00 Dyspnea, unspecified; R53.83 Other fatigue; Z87.891 Personal history of nicotine dependence | CPT/HCPCS: 99214 ==

== ENCOUNTER → 2023-07-29 11:56 | Outpatient (BNVA) | payer MEDICARE, OTHER, SELFPAY | PROVIDERS: PCP Internal Medicine; Visit Provider Internal Medicine | DX: I25.10 Atherosclerotic heart disease of native coronary artery without angina pectoris (principal); I10 Essential (primary) hypertension; E78.5 Hyperlipidemia, unspecified; R06.00 Dyspnea, unspecified; R53.83 Other fatigue; Z87.891 Personal history of nicotine dependence | CPT/HCPCS: 99214 ==

== ENCOUNTER 2023-08-10 09:09 | Outpatient (CLI) | payer MEDICARE, OTHER, SELFPAY ==
--- NOTE | 2023-08-10 09:45 | USCV_ITS ---
Rafa Rodriguez Age: 83 Gender: M : 1940 Exam Date: 08/10/2023 09:21 Ordering Phys: Stuart Horton M.D ([email or web address]) Technologist: BALTAZAR Exam Location: [facility] [place] Indication: BLE PAIN Risk Factors: Previous Vascular Surgery: RIGHT LEFT BP: 106.0 / BP: 104.0/ 0 0 Waveform Velocity (cm/s) Velocity (cm/s) Waveform Triphasic 86.7 Iliac Prox 72.0 Triphasic Triphasic 76.7 Iliac Mid 66.9 Triphasic Triphasic 71.9 Iliac Distal 75.3 Triphasic Triphasic 68.0 CLERICAL AND OFFICE SUPPORT WORKERS 79.0 Triphasic Triphasic 64.0 SFA Prox 87.0 Triphasic Triphasic 72.0 SFA Mid 83.0 Triphasic Triphasic 68.0 SFA Dist 55.0 Triphasic Triphasic 54.0 POP 56.0 Triphasic Biphasic 82.0 [employer] DEAN 23.0 Biphasic Biphasic 36.0 DPA 47.0 Biphasic 0.9 BRYSON 0.8 FINDINGS Mild to moderate diffuse plaques in the iliac, femoral and popliteal arteries bilaterally Resting BRYSON 0.9 on the right and 0.8 on the left. Slightly abnormal Doppler waveforms in the infrapopliteal vessels bilaterally CONCLUSIONS 1. Features of mild peripheral artery disease possibly involving the infrapopliteal vessels bilaterally, based on the BRYSON 2. Doppler examination revealed mild to moderate plaque in the iliac, femoral and popliteal arteries bilaterally. Dr Hailey Morton MD [facility] (Electronically Signed) Final Date: 11 Aug 2023 22:25 S
== END 2023-08-10 09:10 | disposition home or self-care (01) ==
LOC: RAD 09:09
PROVIDERS: PCP Internal Medicine; Visit Provider Internal Medicine
DX: M79.604 Pain in right leg (principal); M79.605 Pain in left leg; I25.10 Atherosclerotic heart disease of native coronary artery without angina pectoris; I73.9 Peripheral vascular disease, unspecified; I70.8 Atherosclerosis of other arteries
CPT/HCPCS: 93925

== ENCOUNTER → 2024-01-03 14:06 | Outpatient (BNVA) | payer MEDICARE, OTHER, SELFPAY | PROVIDERS: PCP Internal Medicine; Visit Provider Internal Medicine | DX: I25.10 Atherosclerotic heart disease of native coronary artery without angina pectoris (principal); R07.89 Other chest pain; I10 Essential (primary) hypertension; E78.5 Hyperlipidemia, unspecified; R06.00 Dyspnea, unspecified; R53.83 Other fatigue | CPT/HCPCS: 99214 ==

== ENCOUNTER 2024-01-26 10:24 | Outpatient (CLI) | payer MEDICARE, OTHER, SELFPAY ==
--- NOTE | 2024-01-26 | ECG_ITS ---
[employer] [facility] Test Date: 2024-01-26 Pat Name: Rafa Rodriguez Department: Room: Gender: Male Attendant [place]: : 1940 Requested By: Stuart Horton Order Number: [id number] Amaya MD: Stuart Horton M.D. Interpretive Statements LEXISCAN SESTAMIBI STRESS TEST Procedure: At the baseline, the blood pressure was 143/79 mmHg with a heart rate of 66 bpm. The electrocardiogram showed normal sinus rhythm, normal axis with normal ST and T's. The Lexiscan was infused over a period of 20 seconds. A total of 0.4 mg of Lexiscan was infused. The stress phase was continued for a total of 5 minutes. Heart rate was at the end of stress phase was 82 bpm and a blood pressure of 152/75 mmHg. The EKG at the peak infusion revealed normal sinus rhythm with no significant ST-T wave changes. Sestamibi was injected 20 seconds after the Lexiscan infusion. Blood pressure at the end of recovery phase was 147/76 mmHg with a heart rate of 77 bpm. Conclusion: 1. Normal EKG response to Lexiscan infusion 2. No Lexiscan induced chest pain or cardiac arrhythmia. 3. Normal blood pressure and heart rate response. 4. Sestamibi/sestamibi perfusion scan pending; see separate report. Electronically Signed On 01-27-2024 10:32:52 CDT by Stuart Horton M.D. [email or web address]
[2024-01-26 11:38] VITALS: BMI 25.9
--- NOTE | 2024-01-26 11:39 | NMCV_ITS ---
NM roxanne perf SPECT r/s* [id number] Rafa Rodriguez Age: 83 Gender: M : 1940 Exam Date: 01/26/2024 11:39 Ordering Phys: Stuart Horton M.D ([email or web address]) Technologist: SARAH Guillen Exam Location: [facility] Indications: cp STRESS TEST Please [facility] IMAGE PROTOCOL Rest/Stress 1 Lexiscan Day Radiopharmaceutical Dose (mCi) Administration Site Administered by Rest: Tc-99m 10.3 IV SARAH Hinkle Sestamibi Stress:Tc-99m 32.7 IV SARAH Hinkle Sestamibi Rest: 26-Jan-2024 60 Discovery 630 Stress: 26-Jan-2024 30 Discovery 630 0.4mg Lexiscan. Images obtained in supine and prone position. SPECT RESULTS Technical Quality: Good Raw Data Analysis: Normal Image Corrections: No attenuation or motion correction applied Summed Stress Score: 0 Summed Rest Score: 0 Summed Difference Score: 0 PERFUSION FINDINGS Large area of patchy decreased tracer uptake noted from basal to distal inferior wall with medium sized area of mild reversibility suggestive of old myocardial infarction surrounded by mild ajit-infarct ischemia. FUNCTIONAL RESULTS (calculated via Gated SPECT) Stress Image LV EF (%): 83 Stress EDV (mL):70 TID: 0.78 Stress ESV (mL):12 FUNCTIONAL FINDINGS: There is normal left ventricular systolic function. 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 Shira Patrick MD (Electronically Signed) Final Date: 27 January 2024 22:20 S
[2024-01-26] MEDS: regadenoson 0.4 Mg/5 ml Syringe IVP (12:33)
[2024-01-26 12:39] VITALS: BP 147/77; PULSE 80
== END 2024-01-26 10:25 | disposition home or self-care (01) ==
PROVIDERS: PCP Internal Medicine; Visit Provider Internal Medicine
DX: R07.9 Chest pain, unspecified (principal); R06.02 Shortness of breath; R94.39 Abnormal result of other cardiovascular function study
CPT/HCPCS: 36415; 78452; 93017; 96374; A9500; J2785

== ENCOUNTER 2024-02-24 07:20 | Outpatient (CLI) | payer MEDICARE, OTHER, SELFPAY ==
[2024-02-24] VITALS (17 sets, daily range): BP systolic 123–163; BP diastolic 62–107; PULSE 60–76; RESP 3–25; TEMP 36.7–36.8; O2SAT 92–100; BMI 25.8
--- NOTE | 2024-02-24 07:30 | XACV_ITS ---
Ht: 170 cm Wt: 79 kg BSA: 1.95 m2 Gender: Male : 1940 Any Known Allergies: No known allergies Exam Priority: Routine Procedure(s): Procedure Description: Diagnostic procedure Procedure Description: PCI procedure Procedure Description: Left Heart Catheterization Procedure Description: Left ventriculography Procedure Description: Drug Eluting Coronary Stent Procedure Description: PTCA Procedure Description: Miscellaneous Procedure Description: ACT Procedure Description: Coronary Angiography Celina VASQUEZ; Diagnostic Cath Status: Elective Diagnostic Findings * Distal Left Anterior Descending: significant 80% stenosis, JOSE: 3 flow. LAD has patent previously placed stent with mild in-stent restenosis, distal LAD is tapering and small caliber vessel however has mid and distal 80% stenosis thought to be treated medically and not amenable to any intervention. * Proximal Circumflex: severe 90% stenosis, JOSE: 3 flow. Patent previously placed distal drug-eluting stent. There appeared to be proximal high-grade 80-90% stenosis before the previously placed stent. * Left Main has no disease. * Posterior Descending Right: subtotal occlusion, JOSE: 2 flow. * Coronary angiography shows right dominance. PCI Status: Elective PCI Indication: New Onset Angina <= 2 months Interventional Findings * Proximal Circumflex: 90% stenosis treated with a AB TREK 2.50X12 RX BALLOON, MDT R JAYCEE 3.0X12 RAMA, MDT NC EUPHORA RX 3.50D17IF BALLOON, and MDT NC EUPHORA RX [id number] BALLOON. 0% residual stenosis, JOSE: 3 flow. * Posterior Descending Right: 99% stenosis treated with a AB MINI TREK 2.00X8 RX BALLOON, and MDT R JAYCEE 2.25X15 RAMA. 0% residual stenosis, JOSE: 3 flow. Conclusions 1. There is subtotal occlusion coronary artery disease with three vessel disease. 2. Normal left ventricular systolic function. Ejection fraction of 65%. 3. Proximal Circumflex was treated with a Balloon, Drug Eluting Stent, Balloon, and Balloon. 4. Posterior Descending Right was treated with a Balloon, and Drug Eluting Stent. Recommendations * 1-Return to inpatient for close monitoring and routine cath care 2-Risk factor modification for secondary prevention 3-Statin and aspirin 81 mg life-long, if tolerated 4-Patient was pre-loaded with 600 mg of Plavix, continue Plavix 75mg p.o. daily for at least one year. We will assess at the end of one year again to continue if further or not 5-Continue optimal medical management 6-Follow up with Dr. Patrick in four weeks and your primary care in 10 days. Interventional RX Recommendation: PCI w/o planned CABG Diagnostic RX Recommendation: PCI w/o planned CABG Ventriculography Ejection Fraction: 65.0 % Pressures Phase:Rest AO : 142 / 80 ( 108 ) @ 10:09:00 AM 147 / 83 ( 110 ) @ 10:09:00 AM 155 / 102 ( 119 ) @ 10:14:00 AM 156 / 78 ( 111 ) @ 10:20:00 AM 130 / 43 ( 81 ) @ 10:47:00 AM 151 / 70 ( 103 ) @ 10:53:00 AM 152 / 82 ( 112 ) @ 11:21:00 AM 118 / 66 ( 84 ) @ 11:21:00 AM LV : 179 / -10 @ 11:18:00 AM 155 / -9 / 11 @ 11:20:00 AM 158 / - @ 11:21:00 AM Valves Phase:DefaultPhase AV : 7.0 @ 11:28:03 AM 7.0 @ 11:28:03 AM AV Mean Gradient: 16.0 @ 11:28:03 AM Clinical Evaluation EBL: 5mL-10mL Procedural Details Procedure started. Pre-Procedure Time Out. Identified patient by full name and date of as verbalized by the patient/guarantor. Does the consent match the physician's order: Yes. Accurate & Complete Informed Consent: Yes. Inpatient/Outpatient History & Physical on Chart: Yes. If H&P is completed, is and addenduem needed: No; If yes, is the addendum complete: N/A. Visualize and Verify Site with Patient/Guarantor: N/A. Relevant Radiology Images available: N/A. Pre-op teaching completed and patient verbalized understanding. The risks, benefits, and alternatives of sedation and/or procedure were discussed by physician. The patient agrees to continue. [facility] Clinical Fraility Score: 4: Vulnerable. Channel Marketing Coordinator Indications: Worsening Angina, abnormal stress test. Chest Pain Symptom Assessment: Typical Angina Symptoms. Cardiovascular Instability: No. Correct patient, site and procedure confirmed by cath team. PERRLA. Strong, equal hand insecticide mixer bilaterally. Lungs clear x 5 lobes. IV Site on Arrival: 20 gauge in the left anticubital. IV Fluids: 0.9% NaCl at KVO. 0 mL infused prior to electrical laboratory technician. Pre Procedural Pulses: bilateral dorsalis pedis was 3+. Pre Procedural Pulses: bilateral posterior tibial was 1+. Pre Procedural Pulses: bilateral radial was 3+. Oxygen started at 2liters/min via nasal canula. right groin was prepped with chloroprep then draped in the usual sterile fashion. right radial was prepped with chloroprep then draped in the usual sterile fashion. Physician notified. Baseline sample Acquired. HR: 66 BPM. Physician arrived. Equipment: 6F - Radial. Cardiac Cath Pack. ACIST Manifold Kit Model BT 2000. Heparinized Saline (2 units/mL), 1000 mL bag. Physician scrubbed in. Immediate Pre-Procedure Time Out. Correct Patient: Yes; Correct Procedure: Yes; Correct Site: Yes; Correct Patient Position: Yes; Correct Supplies: Yes; Dried Flammable Prep: Yes; Blood Products Available: N/A;. Lidocaine 1% infiltrated to the right radial. Arterial access obtained. A 5 kittitian TIG catheter in over wire. Multiple views taken of right coronary artery. Catheter redirected to the LCA. Catheter removed over the exchange wire. A 5 kittitian Santhosh catheter in over wire. Multiple views taken of left coronary artery. Inventory is CRD 6 FR XB 3.5 GUIDE. Catheter removed over the exchange wire. 6 kittitian XB 3.5 guide catheter was inserted over the wire. Runthrough guidewire was advanced through the guide catheter to lesion in the prox Circ. ACT drawn. Results 216 seconds. Therapeutic limits - pre-heparin administration 90-150 seconds and monitoring heparin during a vascular procedure >250 seconds. Inflation number : 1 A AB TREK 2.50X12 RX BALLOON was prepped and advanced across the Prox CX , then inflated to 14 JOSE E for 0:11 seconds. Balloon pulled back on wire to check results. Balloon out. Inflation Number : 2 A MDT R JAYCEE 3.0X12 RAMA -Lot Number# [id number] exp date 10/14/2025 was prepped and advanced across the Prox CX. The stent was deployed at 14 JOSE E for 0:18 seconds. Inflation number : 3 A MDT NC EUPHORA RX [id number] BALLOON was prepped and advanced across the Prox CX , then inflated to 10 JOSE E for 0:18 seconds. Balloon out. Inflation number : 4 A MDT NC EUPHORA RX [id number] BALLOON was prepped and advanced across the Prox CX , then inflated to 12 JOSE E for 0:21 seconds. Inflation number: 5 The MDT NC EUPHORA RX 3.12B16WO BALLOON was reinflated across the Prox CX, to 12 JOSE E for 0:15 seconds. Balloon out. Results checked. Wire out. Guide catheter out. 6 kittitian JR 4 guide catheter was inserted over the wire. Unable to seat guide catheter. ACT drawn. Results 308 seconds. Therapeutic limits - pre-heparin administration 90-150 seconds and monitoring heparin during a vascular procedure >250 seconds. 6 kittitian AL 0.75 guide catheter was inserted over the wire. Guide catheter out. Unable to seat guide catheter. Guide catheter out. Inventory is CRD 6FR H-STICK GUIDE. 6 kittitian HS guide catheter was inserted over the wire. Runthrough guidewire was advanced through the guide catheter to lesion in the PDA. Inflation number : 1 A AB MINI TREK 2.00X8 RX BALLOON was prepped and advanced across the R PDA , then inflated to 8 JOSE E for 0:12 seconds. Inflation number: 2 The AB MINI TREK 2.00X8 RX BALLOON was reinflated across the R PDA, to 14 JOSE E for 0:13 seconds. Inflation number: 3 The AB MINI TREK 2.00X8 RX BALLOON was reinflated across the R PDA, to 12 JOSE E for 0:13 seconds. Inflation number: 4 The AB MINI TREK 2.00X8 RX BALLOON was reinflated across the R PDA, to 14 JOSE E for 0:12 seconds. Balloon out. Results checked. Inflation Number : 5 A MDT R JAYCEE 2.25X15 RAMA -Lot Number# [id number] exp date 10/29/2025 was prepped and advanced across the R PDA. The stent was deployed at 14 JOSE E for 0:19 seconds. Stent balloon out over wire. Results checked. Wire out. Guide catheter out. A 5 kittitian Angled Pig catheter in over wire. ACT drawn. Results 240 seconds. Therapeutic limits - pre-heparin administration 90-150 seconds and monitoring heparin during a vascular procedure >250 seconds. EDP Sample taken: LV 179/-11,23; HR: 80 BPM; SpO2: 100%. LV gram performed in [place] @ 10 mL/second for a total of 30 mL. EDP Sample taken: LV 155/-10,11; HR: 79 BPM; SpO2: Off%. Pullback taken: LV 158/-11,11; AO 152/82(112); Mean: 16mmHg, Peak to Peak: 7mmHg, SEP: 6sec/min; HR: 77 BPM; SpO2: 99%. Catheter removed over the exchange wire. Physician scrubbed out. A TR Band was successful obtaining hemostatsis at the Right Radial artery insertion site. TR band placed. Hemostasis obtained. Post Procedure: Pulses reassessed and unchanged. PERRLA. Strong, equal hand insecticide mixer bilaterally. No VTE prophylaxis required. Medication's Wasted: Lidocaine 1% = 18 mL. Medication's Wasted: Nitro = 49.6 mg. Total IV fluids: 113 mL. Contrast type used: Omnipaque 300 mgI/mL, 500 mL bottle. Complications: none. Post-op diagnosis: significant CAD: pci to Prox Circ and PDA. Estimated blood loss: 5mL-10mL. Responsiveness - Normal response to verbal stimuli; alert and oriented, PERRLA. Airway - Unaffected, no intervention required; spontaneous ventilation. Circulation: W/N/L, pulses unchanged. Nausea/Vomiting: No. Procedure completed. Patient transferred by wheelchair to ICU. Patient transferred by ambulation to ICU. Vital chart was stopped. Access Site Site: Right Radial artery Sheath Size: 6 Fr Hemostasis Method: TR Band Hemostasis Success: Successful Procedure Medications Start: 9:51 AM Stop: 9:51 AM Medication: Versed Amount: 1 mg Route: I.V. Start: 9:51 AM Stop: 9:51 AM Medication: Fentanyl Amount: 50 mcg Route: I.V. Start: 10:07 AM Stop: 10:07 AM Medication: Nitrogylcerin Amount: 200 mcg Route: I.A. Start: 10:08 AM Stop: 10:08 AM Medication: Heparin Amount: 5000 units Route: I.V. Start: 10:29 AM Stop: 10:29 AM Medication: Heparin Amount: 4000 units Route: I.V. Start: 10:37 AM Stop: 10:37 AM Medication: Versed Amount: 1 mg Route: I.V. Start: 10:37 AM Stop: 10:37 AM Medication: Fentanyl Amount: 50 mcg Route: I.V. Start: 11:17 AM Stop: 11:17 AM Medication: Heparin Amount: 3000 units Route: I.V. Start: 11:19 AM Stop: : AM Medication: Nitrogylcerin Amount: 200 mcg Route: I.C. I, the attending physician, have reviewed and verified all procedure medications. Yes, all medications given per verbal order History/Risk Factors Hypertension: Yes Dyslipidemia: Yes Peripheral Arterial Disease (PAD): No Myocardial Infarction (FL): No Obesity: No Renal Disease: No Tobacco Use: Former Prior Interventions PCI: Yes CABG: No Valve Surgery: No Report Signatures Finalized by Shira Patrick MD on 03/15/2024 08:19 PM
[2024-02-24 07:54] LABS: Basophils % 0.6 %; Eosinophils # 0.1 10^3/uL (0.0-0.8); Eosinophils % 2.5 %; Hematocrit 43.2 % (37-53); Lymphocytes # 1.5 10^3/uL (0.8-4.8); Lymphocytes % 30.6 %; Mean Corpuscular HGB Conc 33.3 g/dL (30-55); Mean Corpuscular Hemoglobin 32.4 pg (27-33); Mean Corpuscular Volume 97.1 fl (82-101); Mean Platelet Volume 9.2 fL (7.4-10.4); Monocytes # 0.6 10^3/uL (0.2-0.9); Monocytes % 11.7 %; Neutrophils # 2.65 10^3/uL (1.8-7.7); Neutrophils % 54.4 %; Nucleated Red Blood Cells % 0 %; Platelet Count 214 10^3/cmm (157-399); Red Blood Count 4.45 10^6/uL (3.85-5.65); Red Cell Distribution Width 13.1 % (12.1-15.1); White Blood Count 4.87 10^3/uL (3.29-11.43)
[2024-02-24 08:14] LABS: Blood Urea Nitrogen 25 mg/dL (8-23); Calcium 9.6 mg/dL (8.5-10.5); Carbon Dioxide 27 mmol/L (22-29); Chloride 103 mmol/L (98-107); Glucose 98 mg/dL (65-115); Osmolality Calculated 294 mOsm/kg (285-295); Sodium 140 mmol/L (136-145)
[2024-02-24] MEDS: diphenhydrAMINE 50 mg Capsule PO (08:55)
--- NOTE | 2024-02-24 09:54 | P.HP_ITS ---
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 Stress test appeared to be abnormal in the infer ior wall, it is the reason patient is here for left heart catheterization and PCI if indicated. Patient has been explained all risk-benefit and alternative for the procedure. Would like to proceed with it. Medications/Allergies* Home Medications Medication Instructions Recorded Confirmed Type ascorbate calcium (vitamin C) 500 500 mg PO DAILY 06/01/19 02/24/24 History mg tablet multivitamin,[id number] 1 tab PO DAILY 06/01/19 02/24/24 History (Complete Multivitamin tablet) omega-3 fatty acids 1,000 mg 1,000 mg PO DAILY 06/01/19 02/24/24 History capsule (Fish Oil Concentrate) cholecalciferol (vitamin D3) 125 125 mcg PO DAILY 02/24/24 02/24/24 History mcg (5,000 unit) tablet (Vitamin D3) Allergies/Adverse Reactions Allergy/AdvReac Type Severity Reaction Status Date / Time No Known Allergies Allergy Verified 02/23/24 08:52 Current Medications: Generic Name Dose Route Start Last Admin Trade Name Freq PRN Reason Stop Dose Admin Sodium Chloride 1,000 mls @ 50 mls/hr 02/24/24 07:30 02/24/24 07:32 Sodium Chloride 0.9% IV 02/25/24 03:29 Not Given .Q20H ONE Pertinent History/Comorbid Conditions* Medical History (Updated 03/05/23 @ 00:00 by ANETTE Buckner) Hx of heart valve stenosis History of malignant melanoma History of nonmelanoma skin cancer Dizziness HTN (hypertension) Dyslipidemia ASHD (arteriosclerotic heart disease) Surgical History (Updated 03/05/21 @ 13:39 by Jenn Knight DO) History of tonsillectomy S/P cataract extraction S/P tonsillectomy S/P hernia repair S/P angioplasty with stent Family History (Updated 06/01/19 @ 10:44 by Annabel Dunlap RN) Father, AGE 68 Mother, AT AGE 62 Heart disease Myocardial infarction Father Social History Smoking and tobacco/nicotine status: former use of tobacco/nicotine Alcohol intake: current Alcohol intake frequency: 0-2 Drinks per Day Household members: spouse Marital status: service: No 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
--- NOTE | 2024-02-24 11:34 | ECG_ITS ---
[facility]: 2024-02-24 Pat Name: Rafa Rodriguez Department: Room: ICU12 Gender: Male Gwot Ia/I[employer] Intelligence Support: : 1940 Requested By: Shira Patrick Order Number: [id number] Jose Luis MD: Hailey Morton M.D. Measurements Intervals [place] Rate: 78 P: 52 HI: 197 QRS: 43 QRSD: 94 T: 67 QT: 393 QTc: 449 Interpretive Statements SINUS RHYTHM LOW QRS VOLTAGE IN EXTREMITY LEADS [QRS DEFLECTION < 0.5 mV IN LIMB LEADS] No previous ECG available for comparison Electronically Signed On 02-24-2024 21:27:32 PERSHING MISSILE CREWMEMBER by Hailey Morton M.D. [email or web address]
[2024-02-24] MEDS: sodium chloride 0.9% 1,000 ML 100 ML IV (12:01)
--- NOTE | 2024-02-24 16:08 | PC.NURSE ---
had oozing noted from right wrist site held pressure and air replaced to tr band and will restart to remove again monitor site and upper TR band off
--- NOTE | 2024-02-24 20:24 | PC.NURSE ---
192 -- 2 mL air removed from TR band to right wrist 1932 -- 2 mL air removed from TR band to right wrist 1999 -- 2 mL air removed from TR band to right wrist, all air out of band, TR band remains on arm. No active bleeding noted from right wrist.
[2024-02-25] VITALS (16 sets, daily range): BP systolic 118–165; BP diastolic 56–107; PULSE 64–83; RESP 3–17; TEMP 36.5–36.8; O2SAT 93–99
--- NOTE | 2024-02-25 00:04 | PC.NURSE ---
TR band removed from right wrist. cleaned wrist and arm of old bloody drainage. 2x2 and clear occlusive dressing applied.
[2024-02-25] MEDS: sodium chloride 0.9% 1,000 ML 100 ML IV (00:11)
--- NOTE | 2024-02-25 06:33 | PC.NURSE ---
To laborer tree tapping via bed with laborer tree tapping team at bedside.
[2024-02-25] MEDS: clopidogrel 75 mg Tablet PO (08:56)
[2024-02-25] MEDS: aspirin 81 mg EC Tablet PO (10:49)
--- NOTE | 2024-02-25 15:15 | PC.NURSE ---
Patient was given discharge instructions and future appointment were made. IV was discontinued and patient took all their belongings with them. Patient was stable during discharge.
--- NOTE | 2024-02-25 20:00 | PM.DCS ---
Discharge Providers Date of Admission: 02/24/2024 Date of Discharge: February 25, 2024 Attending Provider at Admission: Shira Patrick MD Attending Provider at Discharge: Shira Patrick MD Consults: None. Primary Care Provider: Morris Archer MD Diagnoses at Discharge Discharge Diagnosis (1) S/P angioplasty with stent: Details from hospital stay: Patient s/p staged angioplasty and stenting to the proximal circ and PDA. Will continue dual antiplatelet therapy including asa and plavix for at least 1 year. Status: Acute (2) Dyslipidemia: Details from hospital stay: Continue rosuvastatin 10 mg daily. Status: Acute (3) HTN (hypertension): Details from hospital stay: Continue current home medications. Status: Acute Qualifiers: Hypertension type: primary hypertension Qualified Code(s): I10 - Essential (primary) hypertension Reason for Visit Reason for Visit: R94.39 Brief History: 83-year-old male past medical history significant for coronary artery disease history of prior stent history of in-stent restenosis nonobstructive coronary artery disease in circumflex territory for worsening of chest pain shortness of breath underwent stress test. Stress test appeared to be abnormal in the inferior wall.. Hospital Course Hospital Course Patient underwent angioplasty and stenting to the proximal circ and PDA. He tolerated the procedure well w/o complications. Will continue dual antiplatelet therapy including asa and plavix for at least 1 year. Physical Exam Const: COMMON NORMALS: no acute distress, healthy appearing, alert and well nourished Neck/C-Spine: COMMON NORMALS: no JVD Chest: COMMONS NORMALS: normal inspection of the chest Resp: COMMON NORMALS: normal respiratory effort, No use of accessory muscles and clear to auscultation bilaterally AUSCULTATION: clear to auscultation bilaterally Cardio: COMMON NORMALS: no JVD, regular rate, regular rhythm, S1 normal heart sound present, No murmurs present (Cardio) and Peripheral pulses 2+ throughout RATE: regular rate RHYTHM: regular rhythm HEART SOUNDS: S1 normal heart sound present PERIPHERAL PULSES: Peripheral pulses 2+ throughout Neuro: SENSORIUM/ORIENTATION: Yes alert Skin: COMMON NORMALS: no rashes or lesions noted GENERAL SKIN EXAM: no rashes or lesions noted OTHER: Right Radial cath site clean dry intact w/o s/s of hematoma or abnormal bleeding Discharge Data Studies Completed and Pending Pending at discharge Category Date Time Status 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 Routine Exams 02/24/24 07:30 Taken Laboratory Results WBC 4.87 10^3/uL (3.29-11.43) 02/24/24 07:35 RBC 4.45 10^6/uL (3.85-5.65) 02/24/24 07:35 Hgb 14.40 g/dL (11.27-16.99) 02/24/24 07:35 Hct 43.2 % (37-53) 02/24/24 07:35 MCV 97.1 fl (82-101) 02/24/24 07:35 MCH 32.4 pg (27-33) 02/24/24 07:35 MCHC 33.3 g/dL (30-55) 02/24/24 07:35 RDW 13.1 % (12.1-15.1) 02/24/24 07:35 Plt Count 214 10^3/cmm (157-399) 02/24/24 07:35 MPV 9.2 fL (7.4-10.4) 02/24/24 07:35 Neut % (Auto) 54.4 % 02/24/24 07:35 Lymph % (Auto) 30.6 % 02/24/24 07:35 Bullitt % (Auto) 11.7 % 02/24/24 07:35 Eos % (Auto) 2.5 % 02/24/24 07:35 Baso % (Auto) 0.6 % 02/24/24 07:35 Neut # (Auto) 2.65 10^3/uL (1.8-7.7) 02/24/24 07:35 Lymph # (Auto) 1.5 10^3/uL (0.8-4.8) 02/24/24 07:35 Bullitt # (Auto) 0.6 10^3/uL (0.2-0.9) 02/24/24 07:35 Eos # (Auto) 0.1 10^3/uL (0.0-0.8) 02/24/24 07:35 Baso # (Auto) 0.0 10^3/uL (0.0-0.1) 02/24/24 07:35 Nucleated RBC % (auto) 0 % 02/24/24 07:35 Nucleated RBCs # 0.0 /100WBC 02/24/24 07:35 Sodium 140 mmol/L (136-145) 02/24/24 07:35 Potassium 4.0 mmol/L (3.5-5.1) 02/24/24 07:35 Chloride 103 mmol/L (98-107) 02/24/24 07:35 Carbon Dioxide 27 mmol/L (22-29) 02/24/24 07:35 Anion Gap 14.0 (5-19) 02/24/24 07:35 BUN 25 mg/dL (8-23) H 02/24/24 07:35 Creatinine 1.0 mg/dL (0.7-1.2) 02/24/24 07:35 GFR Calculation Not Reportable 02/24/24 07:35 Glucose 98 mg/dL (65-115) 02/24/24 07:35 Calculated Osmolality 294 mOsm/kg (285-295) 02/24/24 07:35 Calcium 9.6 mg/dL (8.5-10.5) 02/24/24 07:35 Procedures Performed Left theart cath with angioplasty and stenting to the proximal circ and PDA. Vitals Last Vital Signs Temp 98.1 F 02/25/24 09:00 Pulse 83 02/25/24 14:00 Resp 14 02/25/24 14:00 BP 156/70 02/25/24 14:00 Pulse Ox 97 02/25/24 14:00 O2 Del Method Room Air 02/25/24 14:00 Discharge Plan Discharge Patient Disposition: Home Prescriptions: Continued omega-3 fatty acids [Fish Oil Concentrate] 1,000 mg capsule 1,000 mg PO DAILY ascorbate calcium (vitamin C) 500 mg tablet 500 mg PO DAILY Complete Multivitamin Tablet 1 tab PO DAILY clopidogrel 75 mg tablet See Rx Instructions .ROUTE .COMPLEX Qty: 90 3RF Dose Instruction: Take 1 tablet by mouth once daily Rx Instructions: Take 1 tablet by mouth once daily rosuvastatin 10 mg tablet 10 mg PO DAILY Qty: 90 3RF cilostazol 50 mg tablet 50 mg PO BID Qty: 180 3RF aspirin [Adult Low Dose Aspirin] 81 mg tablet,delayed release (DR/EC) 81 mg PO DAILY Qty: 90 3RF metoprolol succinate 50 mg tablet extended release 24 hr See Rx Instructions .ROUTE .COMPLEX Qty: 45 3RF Dose Instruction: Take 1/2 (one-half) tablet by mouth once daily Rx Instructions: Take 1/2 (one-half) tablet by mouth once daily cholecalciferol (vitamin D3) [Vitamin D3] 125 mcg (5,000 unit) Tablet 125 mcg PO DAILY Discharge Orders: Discharge Order (Routine); Ordered 02/25/24 Ordered By: Emma Hinds Referrals: Karen Hughes FNP [Nurse Practitioner] - (We have notified your physician's clinic of the need for a follow-up appointment to be scheduled. If you have not heard from them within the next 2 business days, please call them directly. ) Diet: Advance as tolerated and Cardiac Activity: Resume usual activity and Increase activity as tolerated Patient Instructions: Coronary Angioplasty (DC) Activity Restrictions/Additional Instructions: Patient was educated not to life more than [address] or drive for at least 3 days. Notify us of any abnormal swelling, pain to cath site, fever, chills, or body aches. Discharge Date/Time: 02/25/24 15:06 Discharge Attestations Time Spent in Discharge Care*: less than 30 min Quality Metrics Clinical Quality Measures [ No reported AMI, CVA or VTE this stay] Coding Level of Care Code Acute Code for Chg Fwd Diagnoses S/P angioplasty with stent Z95.820 Dyslipidemia E78.5 Primary hypertension I10 Hypertension type: primary hypertension
== END 2024-02-25 15:06 | disposition home or self-care (01) ==
LOC: CCL 07:22 → ICU 12:30
PROVIDERS: PCP Internal Medicine; Visit Provider Internal Medicine Cardiovascular Disease
DX: I25.10 Atherosclerotic heart disease of native coronary artery without angina pectoris (principal); I25.82 Chronic total occlusion of coronary artery; T82.855A Stenosis of coronary artery stent, initial encounter; I10 Essential (primary) hypertension; E66.9 Obesity, unspecified; Z87.891 Personal history of nicotine dependence; Z68.25 Body mass index [BMI] 25.0-25.9, adult; E78.5 Hyperlipidemia, unspecified; Z95.5 Presence of coronary angioplasty implant and graft
CPT/HCPCS: 36415; 80048; 85025; 85347; 93005; 93458; 96374; 99152; 99153; C1725; C1769; C1874; C1887; C1894; C9600; J1644; J2250; J3010; J3490; J7030; Q0163; Q9967

== ENCOUNTER → 2024-03-08 13:17 | Outpatient (BNVA) | payer MEDICARE, OTHER, SELFPAY | PROVIDERS: PCP Internal Medicine; Visit Provider Nurse Practitioner Family | DX: I10 Essential (primary) hypertension (principal) | CPT/HCPCS: 36415; 80048 ==